=== PATIENT | male | born 1940 | race Caucasian/White ===

== ENCOUNTER 2018-01-20 07:45 | Emergency (ER) | payer MEDICARE ==
--- NOTE | 2018-01-20 08:08 | UC ---
Upper Extremity HPI - HPI Summary HPI Summary: IN-ROOM NOTE: This patient is a 77 year old M presenting to [facility] with a chief complaint of laceration on the left hand since yesterday. Patient denies N/V/D. He scraped his left hand in the [employer] parking against a car mirror. Patient claims that not broken mirror went into his hand. Rich Kim III, MD is his PCP. He sees Yung Nicole MD for his diabetes. Patient is taking aspirin. MD NOTE: Left hand abrasion-type injury less than 24 hours ago. Patient is concerned about infection. Vital signs stable. ROS: all systems negative except for the left hand, which shows scattered abrasions. 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 BP 122/77. Patient is on Altace for HTN. Type 2 diabetic. Visit history: colon noncontributory to present complaint. NURSES NOTE: Cuts on middle and index finger left, cut on car mirror yesterday. - History of Current Complaint Stated Complaint: FINGER INJURY Time Seen by Provider: 01/20/18 07:56 Hx Obtained From: Patient Onset/Duration: Sudden Onset, Lasting Hours - Less than 24 hours ago, Still Present Severity Initially: Mild Severity Currently: Mild Associated Signs And Symptoms: Positive: Other - Denies N/V/D - Allergies/Home Medications Allergies/Adverse Reactions: Allergies Allergy/AdvReac Type Severity Reaction Status Date / Time ENVIRONMENTAL Allergy SNEEZE, Uncoded 01/20/18 08:09 CONGESTION Home Medications: Home Medications Fluticasone HFA 110 mcg(NF) [Flovent HFA 110 mcg(NF)] 1 puff INH BID PRN [History Confirmed 01/20/18] PMH/Surg Hx/FS Hx/Imm Hx Endocrine History: Diabetes - Type 2 Cardiovascular History: Hypertension GI/ History: Kidney Stones Other History Of: Anticoagulant Therapy Negative For: HIV, Hepatitis B, Hepatitis C - Surgical History Surgical History: Yes Surgery Procedure, Year, and Place: 1969'S APP[place]CTOMY, [place] [facility]. 1999 & 2007 LEFT KNEE SURGERY, [facility] [place] [facility] [place]. 2009 PELVIS SYMPHYSIS ORIF AFTER WATER SKIING ACCIDENT, [place]. 02/13/2013 CYSTOSCOPY, LEFT URETERAL STENT PLACEMENT, LASER LITHOTRIPSY, [facility] [place]. BLADDER STONE [id number] - Family History Known Family History: Negative: Hypertension, Renal Disease, Respiratory Disease - Social History Occupation: Employed Part-time Lives: With Family Alcohol Use: Weekly Alcohol Amount: 1-2 PER WEEK Substance Use Type: None Smoking Status (MU): Never Smoked Tobacco - Immunization History Most Recent Influenza Vaccination: JAN 2015 Most Recent Pneumonia Vaccination: 2014 Review of Systems Gastrointestinal: Vomiting - Denies, Diarrhea - Denies, Nausea - Denies Musculoskeletal: Other: - Laceration of left hand All Other Systems Reviewed And Are Negative: Yes - Comments Additional Review of Systems Comments: POSITIVE: LEFT HAND LACERATION NEGATIVE: N/V/D Physical Exam - Summary Physical Exam Summary: Appearance: The patient is well-appearing, is in no pain distress, and is well- nourished. Eyes: Conjunctiva are clear. ENT: The hearing is grossly normal, the pharynx is normal, and the TMs are normal. There is no muffled or hoarse voice. Neck: The neck is supple and there is no lymphadenopathy. Respiratory: The chest is nontender. The lungs are clear, there are normal breath sounds, and there is no respiratory distress. Cardiovascular: REGULAR RATE AND RHYTHM. PULSE 80. 2/6, HOLOSYSTOLIC MURMUR AT THE LEFT STERNAL BORDER. NO CAROTID BRUITS OR RADIATION OF THE MURMUR TO THE CAROTID ARTERIES. Abdomen: The abdomen is soft and nontender. There is no organomegaly. Bowel sounds: present Musculoskeletal: Strength is intact. The patient moves all extremities. EXAMINATION OF LEFT HAND: ABRASIONS NOTED ON DORSUM OF SECOND AND THIRD FINGERS ON LEFT HAND. THE FOURTH FINGER ABRASION IS JUST DISTAL TO THE MCP. EXAMINATION OF THE DORSUM OF THE THIRD FINGER SHOWS A 3 CM SUPERFICIAL LACERATION, WELL APPROXIMATED, WITHOUT BLEEDING OR SIGN OF INFECTION OVER THE DORSUM OF THE PROXIMAL PHALANX. EXAMINATION OF THE INDEX FINGER SHOWS MULTIPLE SMALL ABRASIONS OVER THE PROXIMAL ASPECT OF THE DORSUM, PIP. EXAMINATION OF TENDONS SHOWS THEM TO BE FULLY FUNCTIONAL, ARE THE FLEXION TENDONS. NO INFECTION. Neurological: The patient is alert. Motor and sensory examination grossly intact. Psychological: The patient displays age appropriate behavior Skin: Negative for rashes. Triage Information Reviewed: Yes Vital Signs: Initial Vital Signs Temp 97.6 F 01/20/18 08:00 Pulse 89 01/20/18 08:00 Resp 16 01/20/18 08:00 BP 142/77 09/01/18 08:00 Pulse Ox 99 01/20/18 08:00 Vital Signs Reviewed: Yes Upper Extremity Course/Dx - Course Course Of Treatment: Patient presents with abrasions to the back of the left hand. Examination of the hand is normal with the exception of 3 superficial abrasions of the 2nd, 3rd, and 4th finger. These were cleaned and dressed. The patient will watch for any sign of infection. - Differential Dx/Diagnosis Differential Diagnosis/HQI/PQRI: Other - cellulitis, tendon injury Provider Diagnoses: Superficial abrasions over the dorsum of the left hand Discharge - Sign-Out/Discharge Documenting (check all that apply): Patient Departure - D/C All imaging exams completed and their final reports reviewed: No Studies - Discharge Plan Condition: Stable Disposition: HOME Patient Education Materials: Abrasion (ED) Referrals: Rich Kim MD [Primary Care Provider] - Additional Instructions: Pre-hypertensive BP reading of 142/77. Follow up with your doctor to recheck your blood pressure reading within the next four weeks. WE DISCUSSED: The abrasions to your left hand should heal well over the next 10 days. Watch for any sign of infection including increased pain, redness, swelling, or heat to the area. Warm moist heat to the area 2-3 times a day will increase circulation. Dressed with antibiotic ointment and a Band-Aid over the next 2-3 days. Call us with any questions or concerns. - Billing Disposition and Condition Condition: STABLE Disposition: Home - Attestation Statements Document Initiated by Kana: Yes Documenting Scribe: Gerhard Vargas Provider For Whom Kana is Documenting (Include Credential): Vance Liz Scribe Attestation: Gerhard Mathew, scrlayoed for Vance Liz on 01/20/18 at 0914. Scribe Documentation Reviewed: Yes Provider Attestation: The documentation as recorded by the Gerhard duff accurately reflects the service I personally performed and the decisions made by , Vance Liz
[2018-01-20 08:09] VITALS: BP 142/77
[2018-01-20] MEDS ORDERED: Tetan/Diph/Pertus SYR(Tdap)* 0.5 ML SYR(BOOSTRIX) use SYR IM ONE (08:17)
== END 2018-01-20 09:07 | disposition home or self-care (01) ==
LOC: UCEAST 07:45
DX: S60.512A Abrasion of left hand, initial encounter (principal); W22.09XA Striking against other stationary object, initial encounter; Y92.9 Unspecified place or not applicable; E11.9 Type 2 diabetes mellitus without complications; I10 Essential (primary) hypertension; Z87.442 Personal history of urinary calculi; Z79.01 Long term (current) use of anticoagulants
CPT/HCPCS: 90471; 90715; 99212; G0463

== ENCOUNTER 2018-05-05 07:55 | Emergency (ER) | payer MEDICARE ==
[2018-05-05 08:06] VITALS: BP 119/70
--- NOTE | 2018-05-05 08:25 | UC ---
Lower Extremity/Ankle HPI - HPI Summary HPI Summary: About 4 days ago pt dropped a large object right onto the tip of his R toe. There was no bleeding and he has been able to walk normally since then, but now he has developed redness at the base of his nail that is a little tender. Has T2DM, mild neuropathy. - History of Current Complaint Chief Complaint: UCLowerExtremity Stated Complaint: R TOE INJURY Time Seen by Provider: 05/05/18 08:08 Hx Obtained From: Patient Onset/Duration: Lasting Days Severity Initially: Moderate Severity Currently: Mild Pain Intensity: 1 Aggravating Factor(s): Nothing Alleviating Factor(s): Rest Able to Bear Weight: Yes - Allergies/Home Medications Allergies/Adverse Reactions: Allergies Allergy/AdvReac Type Severity Reaction Status Date / Time ENVIRONMENTAL Allergy SNEEZE, Uncoded 05/05/18 08:06 CONGESTION PMH/Surg Hx/FS Hx/Imm Hx Endocrine History: Diabetes Cardiovascular History: Hypertension GI/ History: Kidney Stones Other History Of: Anticoagulant Therapy Negative For: HIV, Hepatitis B, Hepatitis C - Surgical History Surgical History: Yes Surgery Procedure, Year, and Place: [place]OMY, [place] [facility]. 1999 & 2007 [place] [facility] [place] [facility] [place] PELVIS SYMPHYSIS ORIF AFTER WATER SKIING ACCIDENT, [place]. 02/13/2013 CYSTOSCOPY, LEFT URETERAL STENT PLACEMENT[place] [facility] [place] [id number] - Family History Known Family History: Positive: None Negative: Hypertension, Renal Disease, Respiratory Disease - Social History Occupation: Retired Alcohol Use: Weekly Alcohol Amount: 1-2 PER WEEK Substance Use Type: None Smoking Status (MU): Never Smoked Tobacco - Immunization History Most Recent Influenza Vaccination: JAN 2015 Most Recent Tetanus Shot: unknown, thinks >5 years Most Recent Pneumonia Vaccination: 2014 Review of Systems All Other Systems Reviewed And Are Negative: Yes Constitutional: Positive: Negative Skin: Positive: Other - redness Eyes: Positive: Negative ENT: Positive: Negative Respiratory: Positive: Negative Cardiovascular: Positive: Negative Gastrointestinal: Positive: Negative Genitourinary: Positive: Negative Motor: Positive: Negative Neurovascular: Positive: Negative Musculoskeletal: Positive: Negative Neurological: Positive: Negative Psychological: Positive: Negative Is Patient Immunocompromised?: No Physical Exam Triage Information Reviewed: Yes Appearance: No Pain Distress, Well-Nourished Vital Signs: Initial Vital Signs Temp 96.7 F 05/05/18 08:01 Pulse 77 05/05/18 08:01 Resp 16 05/05/18 08:01 BP 119/70 05/05/18 08:01 Pulse Ox 100 05/05/18 08:01 Vital Signs Reviewed: Yes Eye Exam: Normal Eyes: Positive: Conjunctiva Clear ENT Exam: Normal ENT: Positive: Normal ENT inspection, Hearing grossly normal, Pharynx normal, TMs normal Respiratory Exam: Normal Respiratory: Positive: Chest non-tender, Lungs clear, Normal breath sounds, No respiratory distress, No accessory muscle use Cardiovascular: Positive: Murmur:Sys:Grade _?_/ - III Musculoskeletal: Positive: Strength Intact, ROM Intact Neurological Exam: Normal Neurological: Positive: Alert Psychological Exam: Normal Skin Exam: Other - Erythema on skin at base of R great toenail. Nail firmly attached to nail bed, onychomycosis evident under nail. Diagnostics - Radiology No standard instances Radiology Interpretation Completed By: Radiologist Summary of Radiographic Findings: No acute injury Lower Extremity Course/Dx - Differential Dx/Diagnosis Provider Diagnosis: Crushing injury of toe of right foot, Cellulitis of toe, right Discharge - Sign-Out/Discharge Documenting (check all that apply): Patient Departure All imaging exams completed and their final reports reviewed: Yes - Discharge Plan Condition: Stable Disposition: HOME Prescriptions: DOXYcycline CAP(*) [DOXYcycline 100MG CAP(*)] 100 mg PO BID #10 cap Patient Education Materials: Crush Injury (ED) Referrals: Rich Kim MD [Primary Care Provider] - 5 Days Additional Instructions: Please see your primary care office toward the end of the week for a recheck of your toe. If you have new or markedly worsening pain/redness/swelling, please get seen again right away. - Billing Disposition and Condition Condition: STABLE Disposition: Home
== END 2018-05-05 09:05 | disposition home or self-care (01) ==
LOC: UCEAST 07:55
DX: S97.121A Crushing injury of right lesser toe(s), initial encounter (principal); L03.031 Cellulitis of right toe; E11.9 Type 2 diabetes mellitus without complications; I10 Essential (primary) hypertension; Z91.09 Other allergy status, other than to drugs and biological substances; W20.8XXA Other cause of strike by thrown, projected or falling object, initial encounter; Y92.9 Unspecified place or not applicable
CPT/HCPCS: 99212; G0463

== ENCOUNTER 2018-11-30 15:50 | Inpatient (IN) | payer MEDICARE ==
[2018-11-30] MEDS ORDERED: NS 0.9% 1000 ML** 1,000 ML IV ONE (16:11)
[2018-11-30] MEDS ORDERED: Aspirin 81 mg CHEW TAB* 81 MG TAB.CHEW PO ONE (16:11)
--- NOTE | 2018-11-30 16:24 | ED ---
Shortness of Breath - HPI Summary HPI Summary: This pt is a 78 y/o male [facility] c/o increasing SOB in the past couple of months. Pt reports he saw Dr. Kim on 11/21/18 and had an echocardiogram ([facility]) on 11/23/18. Dr. Kim's office gave the patient a call and told him they had seen narrowing of blood flow in his echo. Pt has been scheduled to see a travel information center supervisor on 01/02/19 and has an upcoming stress test on 12/10/18. Pt called Dr. Kim today because his SOB was getting worse. He notes his SOB is aggravated with ambulation and even more noticeable with walking up a hill or up the stairs. Denies any chest pain/ pressure/heaviness associated with SOB. His SOB is alleviated with rest. Denies cough, fever, abd pain, nausea, vomiting, diaphoresis, headache, dizziness, urinary symptoms, calf pain. Pt currently notes his SOB is minor. PMHx: arrhythmias, kidney stones, DM type 2, HTN. Patient used to exercise a lot in the past but has not been able to since his pelvic symphysis ORIF surgery. Pt reports occasional alcohol use, 3-4 glasses of wine a month and 1 whisky a month. Denies tobacco or drug use. Cardiac Risks: 1. Positive hypertension, on medications. 2. Positive hyperlipidemia. 3. Positive diabetes type 2. 4. Negative smoking hx. 5. Negative family history of cardiac disease. Medications: Altace/Ramipril - 5 mg Simvastatin - 40 mg Adult aspirin - 81 mg Finasteride - 5 mg Lantus - 15 units Metformin - 1000 mg BID Bydurion - once per week 2 mg for DM Fluticasone - PRN Invokana - 300 mg for DM Trimcinolone - topically PRN - History of Current Complaint Chief Complaint: EDShortnessOfBreath Hx Obtained From: Patient Onset/Duration: Lasting Weeks, Still Present Current Severity: Mild Aggravating Factors: Other - ambulation and much more aggravated going up the hill or upstairs Alleviating Factors: Other - rest Associated Signs & Symptoms: Negative - Allergy/Home Medications Allergies/Adverse Reactions: Allergies Allergy/AdvReac Type Severity Reaction Status Date / Time No Known Allergies Allergy Verified 11/30/18 16:00 PMH/Surg Hx/FS Hx/Imm Hx Endocrine/Hematology History: Reports: Hx Anticoagulant Therapy, Hx Diabetes - TYPE 2- ON ORAL MEDICATION AND INSULIN FOR Denies: Hx Thyroid Disease Cardiovascular History: Reports: Hx Coronary Artery Disease - CHOLESTEROL CONTROL WITH MEDICATION, Hx Hypercholesterolemia, Hx Hypertension - ON MEDICATION FOR, Hx Valvular Heart Disease - SOME TYPE OF MINOR PRE TRIGGER SEEN ON EKG, Other Cardiovascular Problems/Disorders - IRREGULAR FAST BEAT- LAST 3-4 MIN.- STATES NONE IN THE LAST YEARS Denies: Hx Congestive Heart Failure, Hx Deep Vein Thrombosis, Hx Myocardial Infarction, Hx Pacemaker/ICD Respiratory History: Reports: Other Respiratory Problems/Disorders - ONCE A YEAR SINUS INFECTION TREATED WITH ANTIBIOTIC - NONE IN A YEAR Denies: Hx Asthma, Hx Chronic Obstructive Pulmonary Disease (COPD), Hx Lung Cancer, Hx Pneumonia, Hx Pulmonary Embolism GI History: Denies: Hx Gall Bladder Disease, Hx Gastrointestinal Bleed, Hx Ulcer, Hx Urosepsis History: Reports: Hx Kidney Stones - HISTORY OF-CURRENTLY HAS SMALL STONES PER PATIENT, Other Problems/Disorders - BLADDER STONES Denies: Hx Renal Disease Musculoskeletal History: Reports: Hx Arthritis - NECK, Other Musculoskeletal History - 2009 WATER SKI EPISODE - MAJOR PELVIS INJURY, COMPLETELY RECOVERED Sensory History: Reports: Hx Contacts or Glasses - GLASSES Denies: Hx Hearing Aid Opthamlomology History: Reports: Hx Contacts or Glasses - GLASSES Neurological History: Denies: Hx Dementia, Hx Migraine, Hx Seizures, Hx Transient Ischemic Attacks (TIA) Psychiatric History: Denies: Hx Anxiety, Hx Depression, Hx Schizophrenia, Hx Bipolar Disorder - Surgical History Surgical History: Yes Surgery Procedure, Year, and Place: S [place]OMY, [place] [facility]. 1999 & 2007 LEFT KNEE SURGERY, [place] [facility] AND [facility] [place]. 2009 PELVIS SYMPHYSIS ORIF AFTER WATER SKIING ACCIDENT, [place]. 02/13/2013 CYSTOSCOPY, LEFT URETERAL STENT PLACEMENT, LASER LITHOTRIPSY, [facility] [place]. BLAD[place] STONE [id number] Hx Anesthesia Reactions: No Infectious Disease History: No Infectious Disease History: Denies: Hx Clostridium Difficile, Hx Hepatitis, Hx Human Immunodeficiency Virus (HIV), Hx of Known/Suspected MRSA, Hx Shingles, Hx Tuberculosis, Traveled Outside the [place] in Last 30 Days - Family History Known Family History: Negative: Cardiac Disease, Hypertension, Renal Disease, Respiratory Disease Family History: Mother at 94 y/o. Father at age 84 with CHF. 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 Negative: Cough Negative: Abdominal Pain, Vomiting, Nausea Positive: no symptoms reported Negative: Other - NEGATIVE: calf pain Neurological: Other - NEGATIVE: dizziness Negative: Headache All Other Systems Reviewed And Are Negative: Yes Physical Exam - Summary Physical Exam Summary: Appearance: Patient appears younger than stated age, moderate pain distress, well-nourished. Skin: Warm, color reflects adequate perfusion, dry Head: Normal Head/Face inspection, atraumatic Eyes: Conjunctiva clear ENT: Normal inspection Neck: Supple, no nodes, no JVD Respiratory: Lungs clear, normal breath sounds, no respiratory distress Cardio: RRR, No murmur, pulses normal, brisk capillary refill Abdomen: Soft, nontender Bowel sounds: Present Musculoskeletal: Strength Intact/ROM intact, no calf tenderness, no edema. Psychological: Normal Neuro: Alert, muscle tone normal, no focal deficit Triage Information Reviewed: Yes Vital Signs On Initial Exam: Initial Vitals Temp Pulse Resp BP Pulse Ox 97.1 F 97 16 116/84 96 11/30/18 15:54 11/30/18 15:54 11/30/18 15:54 11/30/18 15:54 11/30/18 15:54 Vital Signs Reviewed: Yes Diagnostics - Vital Signs Vital Signs Temp Pulse Resp BP Pulse Ox 11/30/18 15:54 97.1 F 97 16 116/84 96 - Laboratory Result Diagrams: 12/01/18 05:42 12/03/18 08:10 Lab Statement: Any lab studies that have been ordered have been reviewed, and results considered in the medical decision making process. - Radiology Chest XR Radiology Interpretation Completed By: Radiologist Summary of Radiographic Findings: IMPRESSION: Cardiomegaly with interstitial edema consistent with vascular congestion. Dr. Antony has reviewed this report. Re-Evaluation - Re-Evaluation First Eval Re-Evaluation Time: 17:21 Comment: Reviewed lab results with patient and discussed admission plan. Course/Dx - Course Assessment/Plan: Pt is a 78 y/o male presenting to [facility] c/o increasing SOB in the past couple of months. He had echocardiogram ([facility]) on 10/07. Pt has been scheduled to see a travel information center supervisor on 01/02/19 and has an upcoming stress test on 12/10/18. Cardiac Risks: 1. Positive hypertension, on medications. 2. Positive hyperlipidemia. 3. Positive diabetes type 2. 4. Negative smoking hx. 5. Negative family history of cardiac disease. Pts medications reviewed this visit. Nurses notes reviewed. Aware of troponin of 0.26 at 17:07. Lab results remarkable for D-dimer of 295, creatinine of 1.25, glucose of 148, Troponin of 0.26, CRP of 2.78, BNP of 768. Urinalysis with 3+ glucose. Chest XR shows Cardiomegaly with interstitial edema consistent with vascular congestion. Discussed the case with Dr. Olguin, travel information center supervisor, who will consult. Also discussed with hospitalist Rafia Bowden, NOEMI, who will admit the pt. - Physician Notifications Discussed Care of Patient With: Isaiah Olguin Time Discussed With Above Provider: 17:08 Instructed by Provider To: Other - Discussed with Dr. Olguin, travel information center supervisor, who will consult on the pt. - Critical Care Time Critical Care Time: 30-74 min Discharge - Sign-Out/Discharge Documenting (check all that apply): Patient Departure - Admit to [facility] All imaging exams completed and their final reports reviewed: Yes Patient Received Moderate/Deep Sedation with Procedure: No - Discharge Plan Condition: Guarded Disposition: ADMITTED TO [facility] - Billing Disposition and Condition Condition: GUARDED Disposition: Admitted to [facility] - Attestation Statements Document Initiated by Scribe: Yes Documenting Scribe: Charisse Crenshaw Provider For Whom Primitivoibe is Documenting (Include Credential): Jazmyn Antony MD Scribe Attestation: Charisse Mathew, scribed for Jazmyn Antony MD on 12/04/18 at 0932. Status of Scribe Document: Viewed
[2018-11-30 16:35] LABS: ABS Basophils 0.1 10^3/ul (0-0.2); ABS Eosinophils 0.1 10^3/ul (0-0.6); ABS Lymphocytes 1.7 10^3/ul (1.0-4.8); ABS Monocytes 0.7 10^3/ul (0-0.8); ABS Neutrophils 5.3 10^3/ul (1.5-7.7); Eosinophil % 1.3 %; Hematocrit 45 % (42-52); Hemoglobin 15.5 g/dL (14.0-18.0); Lymphocyte % 21.6 %; Mean Corpuscular HGB Conc 34 g/dL (31-36); Mean Corpuscular Hemoglobin 32 pg (27-31); Mean Corpuscular Volume 93 fL (80-94); Mean Platelet Volume 7.4 fL (7.4-10.4); Platelet Count 195 10^3/uL (150-450); Red Cell Distribution Width 13 % (10-15); White Blood Count 7.9 10^3/uL (3.5-10.8)
[2018-11-30 16:54] LABS: ALT 17 U/L (7-52); AST 15 U/L (13-39); Albumin 4.3 g/dL (3.2-5.2); Albumin/Globulin Ratio 1.5 (1-3); Alkaline Phosphatase 72 U/L (34-104); Anion Gap 6 mmol/L (2-11); BUN/Creatinine Ratio 16.8 (8-20); Blood Urea Nitrogen 21 mg/dL (6-24); CO2 Carbon Dioxide 27 mmol/L (22-32); CRP High Sensitivity 2.78 mg/L (<2.00); Calcium 9.6 mg/dL (8.6-10.3); Chloride 106 mmol/L (101-111); Creatine Kinase 86 U/L (10-223); EGFR African American 67.4 (>60); EGFR Non-African American 55.7 (>60); Globulin 2.9 g/dL (2-4); Glucose 148 mg/dL (70-100); Potassium 4.5 mmol/L (3.5-5.0); Sodium 139 mmol/L (135-145); Total Protein 7.2 g/dL (6.4-8.9)
[2018-11-30 16:57] LABS: CKMB ng/mL 5.6 ng/mL (0.6-6.3)
[2018-11-30 17:04] LABS: Troponin I 0.26 ng/mL (<0.04)
--- OUTSIDE RECORDS SUMMARY | 2018-11-30 17:14 | XMS REPORT | Continuity of Care Document ---
:1940 External Reference #:[id number] Author Name Ronit Cruz Care Team Providers Name Role Phone Rich Kim III, MD Primary Care Physician Unavailable Payers Date Identification Numbers Payment Provider Subscriber Effective: 2004 Policy Number: [id number] Medicare Stacy Gilman PayID: [id number] [address] [place] [address] Policy Number: [id number] [facility] Stacy Gilman PayID: [id number] [address] [place] [address] Advance Directives Type Date Description Status Comment Other Directive 07/15/1999 Living Will Current and Verified Other Directive 07/15/1999 Health Care Proxy Current and Verified Other Directive 07/15/1999 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 Onset: obstruction Essential hypertension Rich Kim M.D. Onset: 07/01/2015 Disorder of prostate Rich Kim M.D. Onset: 01/05/2011 Benign essential hypertension Rich Kim M.D. Onset: 01/05/2011 Pure hypercholesterolemia Rich Kim M.D. Onset: 01/05/2011 Type 2 diabetes mellitus Rich Kim M.D. 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 [employer] Tobacco Use Start: Unknown Never Smoked Cigarettes ETOH Use Occasionally consumes alcohol Tobacco Use Start: Unknown Patient has never smoked Smoking Status Reviewed: 11/21/18 Patient has never smoked Exercise Exercises regularly Type/Frequency Allergies, Adverse Reactions, Alerts Description No Known Drug Allergies Medications Active Medications SIG Qnty Indications Ordering Date Provider Nitroglycerin 1 sl q5mins x3 as 25tabs R07.9 Rich EMily 11/21/2018 0.4mg needed for chest Anastasia Kim Tablets Sub pain Accu-Chek Softclix use two times a 100units E11.9 Rich EMily 06/14/2012 Lancets day and as needed [place] [facility] [place] one tablet by 90tabs Rich EMily 04/27/2012 40mg mouth once daily Anastasia Kim Tablets Lancets Softclix Use bid And prn 100units Rich Fu 10/09/2008 dX 250.00 Anastasia [place] [facility] [place]us 15 units qd 1Bottle Yung Nicole MD 08/13/2007 100Unit/ML Solution Ramipril 1 PO qd Yung Nicole MD 08/13/2007 5mg Capsules Metformin HCL 2 PO bid 60tabs Yung Nicole MD 08/13/2007 1000mg Tablets Triamcinolone Cream topically every 15Grams Rich EMily 08/13/2007 day as needed Anastasia Kim 0.1% Cream Fluticasone spray one spray in 1units Rich Fu 08/13/2007 Propionate each nostril every Anastasia Kim 50mcg/Act morning as needed Suspension needs appointment Aspirin Ec 1 po qd 90tabs Unknown 81mg Tablets DR Finasteride 1 by mouth every Unknown 5mg day Tablets Bydureon inject 2 mg sc Yung Nicole MD 2mg Pen weekly Invokana 1 by mouth every Unknown 300mg day before Tablets breakfast History Medications Simvastatin take 1 tablet by 30tabs Sheyla Dominique, 04/27/2012 - 10mg mouth at bedtime N.P. 04/27/2012 Tablets Acetaminophen/Codeine 1-2 po tid prn 30tabs Boyd Medeiros, 2011 - #3 [facility] 07/16/2012 300-30mg Tablets Glimepride No longer using. Yung Nicole MD 07/22/2009 - 4mg 1poqd 07/01/2015 Prandin 1 Tab PO With 270tabs Yung Nicole MD 12/17/2007 - 2mg Tablets Each Meal 07/22/2009 Labetalol HCL 1 PO bid 60tabs Rich Kim, 09/10/2007 - 100mg M.D. 09/10/2007 Tablets Claritin-D 24 Hour 1 PO qd 30tabs Rich Kim, 08/13/2007 - M.D. 08/13/2007 10-240mg Tablets ER 24HR Asa 1 PO qd Rich Kim, 08/13/2007 - 81mg M.D. 03/18/2013 Fluticasone 1 spray each 1units Rich Kim, 08/13/2007 - Propionate nostril in am M.D. 03/01/2012 50mcg/Act Suspension Azithromycin 2 qd For 1 Day, 6tabs Other Physician 08/13/2007 - 250mg Then 1 qd Practices 09/10/2015 Tablets Keflex 1 po bid 20caps Rich Kim, 08/13/2007 - 500mg Capsules M.D. 12/17/2007 Vytorin Take One Tablet 90tabs Boyd Medeiros, 08/13/2007 - 10-40mg Tablets By Mouth AT M.D[facility] 04/27/2012 Bedtime Avodart 1 po qd 3caps Unknown - 0.5mg Capsules 07/01/2015 Tamsulosin HCL 1 po qd Unknown - 0.4mg 04/09/2014 Capsules Byetta inject 1 dose 30units Unknown - 10mcg/0.04ML under the skin 07/01/2015 Solution twice daily as directed Influenza Virus Unknown Vaccine Injection Medications Administered in Office Medication SIG Qnty Indications Ordering Provider Date Influenza Virus Vaccine Unknown 03/19/2014 Injection Immunizations CPT Code Status Date Vaccine Lot # [id number] Given 01/30/2018 Fluzone High Dose 57785 Given 02/22/2017 Influenza Virus Vaccine, Quadrivalent, Split, Preservative Free 47351 Given 02/21/2016 Fluzone High Dose 73883 Given 04/09/2014 Pneumococcal Conjugate Vaccine 13 Valent For [id number] Intramuscular Use 49207 Given 04/04/2013 Tdap - Tetanus/Diptheria/Acellular Pertussis [id number] Given 03/28/2013 Fluzone Vaccine [id number] Given 03/01/2012 Fluzone Vaccine [id number] 97082 Given 03/01/2012 Tdap - Tetanus/Diptheria/Acellular Pertussis [id number] 01126 Given 02/03/2011 Influenza Virus 3Yrs & Over 22087 Given 09/09/2010 Zoster (Zostavax) [id number] 47284 Given 02/22/2008 Influenza Virus 3Yrs & Over 95224 Given 03/14/2007 Influenza Virus 3Yrs & Over 64527 Given 03/14/2007 Influenza Virus 3Yrs & Over 26026 Given 03/14/2007 Influenza Virus 3Yrs & Over [id number] 18162 Given 11/24/2004 Pneumovax (History By Patient) [id number] 95214 Given 03/26/2002 Td (History By Patient) Vital Signs Date Vital Result Comment 11/21/2018 9:05am Height 70 inches 5'10" Weight 191.00 lb Heart Rate 87 /min BP Systolic 126 mmHg BP Diastolic 79 mmHg O2 % BldC Oximetry 96 % BMI (Body Mass Index) 27.4 kg/m2 06/06/2018 9:32am Height 70 inches 5'10" Weight 193.00 lb Heart Rate 71 /min BP Systolic Sitting 134 mmHg BP Diastolic Sitting 80 mmHg O2 % BldC Oximetry 96 % BMI (Body Mass Index) 27.7 kg/m2 02/21/2017 2:57pm Height 69 inches 5'9" Weight 199.00 lb Heart Rate 80 /min BP Systolic Sitting 138 mmHg BP Diastolic Sitting 78 mmHg Body Temperature 97.0 F O2 % BldC Oximetry 97 % BMI (Body Mass Index) 29.4 kg/m2 07/01/2015 1:14pm Height 70 inches 5'10" Weight 203.00 lb Heart Rate 86 /min BP Systolic Sitting 132 mmHg BP Diastolic Sitting 84 mmHg Body Temperature 97.6 F O2 % BldC Oximetry 97 % BMI (Body Mass Index) 29.1 kg/m2 04/09/2014 8:52am Weight 201.00 lb Heart Rate 72 /min BP Systolic Sitting 114 mmHg BP Diastolic Sitting 64 mmHg Body Temperature 97.2 F 03/18/2013 1:10pm Height 70.5 inches 5'10.50" Weight 193.75 lb Heart Rate 72 /min irregular BP Systolic Sitting 110 mmHg BP Diastolic Sitting 60 mmHg BMI (Body Mass Index) 27.4 kg/m2 07/16/2012 10:54am Height 70.5 inches 5'10.50" Weight 209.25 lb Heart Rate 86 /min BP Systolic Sitting 128 mmHg irregular BP Diastolic Sitting 64 mmHg irregular BMI (Body Mass Index) 29.6 kg/m2 03/01/2012 4:00pm Height 70.5 inches 5'10.50" Weight 216.56 lb Heart Rate 92 /min BP Systolic Sitting 154 mmHg BP Diastolic Sitting 80 mmHg BMI (Body Mass Index) 30.6 kg/m2 01/05/2011 9:15am Height 69.5 inches 5'9.50" Weight 211.00 lb Heart Rate 76 /min BP Systolic Sitting 126 mmHg BP Diastolic Sitting 82 mmHg BMI (Body Mass Index) 30.7 kg/m2 08/12/2010 10:48am Weight 210.00 lb Heart Rate 76 /min BP Systolic Sitting 142 mmHg BP Diastolic Sitting 80 mmHg 08/10/2009 11:55am Weight 214.00 lb Heart Rate 78 /min BP Systolic Sitting 130 mmHg BP Diastolic Sitting 84 mmHg 04/08/2008 2:14pm Height 70.5 inches 5'10.50" Weight 214.00 lb Heart Rate 80 /min BP Systolic Sitting 148 mmHg BP Diastolic Sitting 82 mmHg BMI (Body Mass Index) 30.3 kg/m2 02/22/2008 12:06pm Height 70.5 inches 5'10.50" Weight 214.00 lb Heart Rate 52 /min BP Systolic Sitting 134 mmHg BP Diastolic Sitting 74 mmHg BMI (Body Mass Index) 30.3 kg/m2 12/17/2007 1:42pm Height 70.5 inches 5'10.50" Weight 216.00 lb Heart Rate 68 /min BP Systolic Sitting 116 mmHg BP Diastolic Sitting 66 mmHg BMI (Body Mass Index) 30.6 kg/m2 08/13/2007 9:15am Height 70.5 inches 5'10.50" Weight 212.00 lb Heart Rate 84 /min BP Systolic Sitting 124 mmHg BP Diastolic Sitting 70 mmHg BMI (Body Mass Index) 30.0 kg/m2 Results Test Date Facility Test Result H/L Range Note Order 11/21/2018 [facility] In-House EKG <pending> Urine Microalbumin 05/31/2018 [facility] Ur Microalbumin < 15.[address] (mg/L) [place] [address] [phone] Urine Creatinine 86.03 mg/dL Urine Microalbumin/Creatinine TNP <31 1 Laboratory test 05/31/2018 [facility] PSA Diagnostic 0.350 ng/ mL 0-4.[address] [place] [address] [phone] Comp Metabolic 05/31/2018 [facility] Sodium 140 mmol/L N 135- [address] [place] [address] [phone] Potassium 4.0 mmol/L N 3.5-5.0 Chloride 103 mmol/L N 101-111 Co2 Carbon Dioxide 29 mmol/L N 22-32 Anion Gap 8 mmol/L N 2-11 Glucose 101 mg/dL High 70-100 Blood Urea Nitrogen 20 mg/dL N 6-24 Creatinine 0.96 mg/dL N 0.67-1.17 BUN/Creatinine Ratio 20.8 High 8-20 Calcium 9.6 mg/dL N 8.6-10.3 Total Protein 6.5 g/dL N 6.4-8.9 Albumin 3.9 g/dL N 3.2-5.2 Globulin 2.6 g/dL N 2-4 Albumin/Globulin Ratio 1.5 N 1-3 Total Bilirubin 0.70 mg/dL N 0.2-1.0 Alkaline Phosphatase 70 U/L N 34-104 Alt 16 U/L N 7-52 Ast 15 U/L N 13-39 Egfr Non- 75.8 >60 Egfr 91.7 >60 3 Lipid Profile 05/31/2018 [facility] Triglycerides 82 mg/dL 4 (Trig/Chol/HDL) [address] [place] [address] [phone] Cholesterol 149 mg/dL 5 HDL Cholesterol 52.9 mg/dL 6 LDL Cholesterol 80 mg/dL 7 Liver Function 05/31/2018 [facility] Direct 0.10 mg/dL N 0.03- 0.[address] [place] [address] [phone] Indirect Bilirubin 0.6 mg/dL N 0.3-1.0 Laboratory test 05/31/2018 [facility] Vitamin B12 187 pg/mL N 180-[address] [place] [address] [phone] Laboratory test 07/12/2017 [facility] PSA Diagnostic 0.533 0- 4.0 [address] ng/[place] [address] [phone] Lipid Profile 02/13/2017 [facility] Triglycerides 75 mg/dL N 10 (Trig/Chol/HDL) [address] [place] [address] [phone] Cholesterol 133 mg/dL N 11 HDL Cholesterol 45.6 mg/dL N 12 LDL Cholesterol 72 mg/dL N 13 Comp Metabolic Panel 02/13/2017 [facility] Sodium 139 mmol/L N 133-[address] [place] [address] [phone] Potassium 4.0 mmol/L N 3.5-5.0 Chloride 104 mmol/L N 101-111 Co2 Carbon Dioxide 30 mmol/L N 22-32 Anion Gap 5 mmol/L N 2-11 Glucose 108 mg/dL High 70-100 Blood Urea Nitrogen 21 mg/dL N 6-24 Creatinine 0.91 mg/dL N 0.67-1.17 BUN/Creatinine Ratio 23.1 High 8-20 Calcium 9.0 mg/dL N 8.6-10.3 Total Protein 6.3 g/dL Low 6.4-8.9 Albumin 4.0 g/dL N 3.2-5.2 Globulin 2.3 g/dL N 2-4 Albumin/Globulin Ratio 1.7 N 1-3 Total Bilirubin 0.60 mg/dL N 0.2-1.0 Alkaline Phosphatase 66 U/L N 34-104 Alt 15 U/L N 7-52 Ast 15 U/L N 13-39 Egfr Non- 80.8 N >60 Egfr 103.9 N >60 14 Urine Microalbumin 11/04/2016 [facility] Urine Creatinine 73.59 mg/dL N Random [address] [place] [address] [phone] Ur Microalbumin (mg/L) < 15.0 mg/L N Urine Microalbumin/Creatinine TNP ug/mg N <31 15 Comp Metabolic Panel 11/04/2016 [facility] Sodium 136 mmol/L N 133-[address] [place] [address] [phone] Potassium 4.1 mmol/L N 3.5-5.0 Chloride 103 mmol/L N 101-111 Co2 Carbon Dioxide 26 mmol/L N 22-32 Anion Gap 7 mmol/L N 2-11 Glucose 122 mg/dL High 70-100 Blood Urea Nitrogen 16 mg/dL N 6-24 Creatinine 0.87 mg/dL N 0.67-1.17 BUN/Creatinine Ratio 18.4 N 8-20 Calcium 9.5 mg/dL N 8.6-10.3 Total Protein 6.7 g/dL N 6.4-8.9 Albumin 4.2 g/dL N 3.2-5.2 Globulin 2.5 g/dL N 2-4 Albumin/Globulin Ratio 1.7 N 1-3 Total Bilirubin 0.70 mg/dL N 0.2-1.0 Alkaline Phosphatase 67 U/L N 34-104 Alt 16 U/L N 7-52 Ast 16 U/L N 13-39 Egfr Non- 85.1 N >60 Egfr 109.4 N >60 16 Lipid Profile 11/04/2016 [facility] Triglycerides 142 mg/dL N 17 (Trig/Chol/HDL) [address] [place] [address] [phone] Cholesterol 159 mg/dL N 18 HDL Cholesterol 50.2 mg/dL N 19 LDL Cholesterol 80 mg/dL N 20 Liver Function 11/04/2016 [facility] Direct 0.10 mg/dL N 0.03- 0.[address] [place] [address] [phone] Indirect Bilirubin 0.6 mg/dL N 0.3-1.0 Laboratory test 02/29/2016 [facility] PSA Screening 0.405 N 0- 4.0 [address] ng/[place] [address] [phone] Laboratory test 11/11/2015 [facility] Point of Care 124 mg/dL High 74-106 [address] [place] [address] [phone] CBC Auto Diff 11/06/2015 [facility] White Blood 8.2 N 3.5- 10.[address] Count 10^3/[place] [address] [phone] Red Blood Count 5.10 10^6/uL N 4.0-5.4 Hemoglobin 15.8 g/dL N 14.0-18.0 Hematocrit 46 % N 42-52 Mean Corpuscular Volume 91 fL N 80-94 Mean Corpuscular Hemoglobin 31 pg N 27-31 Mean Corpuscular HGB Conc 34 g/dL N 31-36 Red Cell Distribution Width 13 % N 10.5-15 Platelet Count 217 10^3/uL N 150-450 Mean Platelet Volume 8 um3 N 7.4-10.4 Abs Neutrophils 5.1 10^3/uL N 1.5-7.7 Abs Lymphocytes 2.1 10^3/uL N 1.0-4.8 Abs Monocytes 0.8 10^3/uL N 0-0.8 Abs Eosinophils 0.2 10^3/uL N 0-0.6 Abs Basophils 0.1 10^3/uL N 0-0.2 Abs Nucleated RBC 0.02 10^3/uL N Granulocyte % 61.8 % N 38-83 Lymphocyte % 25.3 % N 25-47 Monocyte % 9.6 % High 1-9 Eosinophil % 2.5 % N 0-6 Basophil % 0.8 % N 0-2 Nucleated Red Blood Cells % 0.2 N Comp Metabolic Panel 11/06/2015 [facility] Sodium 138 mmol/L N 133-[address] [place] [address] [phone] Potassium 4.3 mmol/L N 3.5-5.0 Chloride 102 mmol/L N 101-111 Co2 Carbon Dioxide 29 mmol/L N 22-32 Anion Gap 7 mmol/L N 2-11 Glucose 214 mg/dL High 70-100 Blood Urea Nitrogen 17 mg/dL N 6-24 Creatinine 1.01 mg/dL N 0.67-1.17 BUN/Creatinine Ratio 16.8 N 8-20 Calcium 9.8 mg/dL N 8.6-10.3 Total Protein 6.8 g/dL N 6.4-8.9 Albumin 4.3 g/dL N 3.2-5.2 Globulin 2.5 g/dL N 2-4 Albumin/Globulin Ratio 1.7 N 1-3 Total Bilirubin 0.70 mg/dL N 0.2-1.0 Alkaline Phosphatase 73 U/L N 34-104 Alt 26 U/L N 7-52 Ast 18 U/L N 13-39 Egfr Non- 71.8 N >60 Egfr 92.4 N >60 23 Lipid Profile 11/06/2015 [facility] Triglycerides 194 mg/dL N 24 (Trig/Chol/HDL) [address] [place] [address] [phone] Cholesterol 164 mg/dL N 25 HDL Cholesterol 46.3 mg/dL N 26 LDL Cholesterol 79 mg/dL N 27 Liver Function 11/06/2015 [facility] Direct 0.10 mg/dL N 0.03- 0.[address] [place] [address] [phone] Indirect Bilirubin 0.6 mg/dL N 0.3-1.0 Urine Microalbumin 11/06/2015 [facility] Ur Microalbumin 9.0 mg/ L N Random [address] (mg/L) [place] [address] [phone] Urine Creatinine 145.72 mg/dL N Urine Microalbumin/Creatinine 6.1 ug/mg N <31 Urine Microalbumin 12/08/2014 [facility] Ur Microalbumin 10.0 mg /L N Random [address] (mg/L) [place] [address] [phone] Urine Creatinine 162.42 mg/dL N Urine Microalbumin/Creatinine 6.1 ug/mg N <31 Comp Metabolic Panel 12/08/2014 [facility] Sodium 138 mmol/L N 133-[address] [place] [address] [phone] Potassium 3.9 mmol/L N 3.5-5.0 Chloride 103 mmol/L N 101-111 Co2 Carbon Dioxide 29 mmol/L N 22-32 Anion Gap 6 mmol/L N 2-11 Glucose 113 mg/dL High 70-100 Blood Urea Nitrogen 15 mg/dL N 6-24 Creatinine 0.97 mg/dL N 0.67-1.17 BUN/Creatinine Ratio 15.5 N 8-20 Calcium 9.1 mg/dL N 8.6-10.3 Total Protein 6.6 g/dL N 6.4-8.9 Albumin 4.4 g/dL N 3.2-5.2 Globulin 2.2 g/dL N 2-4 Albumin/Globulin Ratio 2.0 N 1-3 Total Bilirubin 0.80 mg/dL N 0.2-1.0 Alkaline Phosphatase 72 U/L N 34-104 Alt 16 U/L N 7-52 Ast 17 U/L N 13-39 Egfr Non- 75.5 N >60 Egfr 97.0 N >60 28 Lipid Profile 12/08/2014 [facility] Triglycerides 120 mg/dL N 29 (Trig/Chol/HDL) [address] [place] [address] [phone] Cholesterol 163 mg/dL N 30 HDL Cholesterol 47.3 mg/dL N 31 LDL Cholesterol 92 mg/dL N 32 Liver Function 12/08/2014 [facility] Direct 0.10 mg/dL N 0.03- 0.18 Panel 101 [facility] [place] [place] [address] [phone] Indirect Bilirubin 0.7 mg/dL N 0.3-1.0 Laboratory test 12/08/2014 [facility] Vitamin B12 273 pg/mL N 180-914 33 finding [address] [place] [address] [phone] Laboratory test 12/08/2014 [facility] PSA Screening 0.520 ng/mL N 0-4.000 34 finding [address] [place] [address] [phone] Comp Metabolic 09/03/2013 [facility] Sodium 140 mmol/L N 133- 145 35 Panel [address] [place] [address] [phone] Potassium 4.2 mmol/L N 3.7-5.6 Chloride 105 mmol/L N 101-111 Co2 Carbon Dioxide 30 mmol/L N 22-32 Anion Gap 5 mmol/L N 2-11 Glucose 96 mg/dL N 70-100 Blood Urea Nitrogen 18 mg/dL N 6-24 Creatinine 0.96 mg/dL N 0.67-1.17 BUN/Creatinine Ratio 18.8 N 8-20 Calcium 9.3 mg/dL N 8.6-10.3 Total Protein 6.6 g/dL N 6.4-8.9 Albumin 4.4 g/dL N 3.2-5.2 Globulin 2.2 g/dL N 2-4 Albumin/Globulin Ratio 2.0 N 1-3 Total Bilirubin 0.80 mg/dL N 0.2-1.0 Alkaline Phosphatase 66 U/L N 34-104 Alt 15 U/L N 7-52 Ast 15 U/L N 13-39 Egfr Non- 76.8 N >60 Egfr 98.7 N >60 36 Lipid Profile 09/03/2013 [facility] Triglycerides 110 mg/dL N 37 (Trig/Chol/HDL) [address] [place] [address] [phone] Cholesterol 161 mg/dL N 38 HDL Cholesterol 50.8 mg/dL N 39 LDL Cholesterol 88 mg/dL N 40 Liver Function 09/03/2013 [facility] Direct 0.10 mg/dL N 0.03- 0.[address] [place] [address] [phone] Indirect Bilirubin 0.7 mg/dL N 0.3-1.0 Urine Microalbumin 09/03/2013 [facility] Ur Microalbumin 10.0 mg /dL N <[address] (mg/L) [place] [address] [phone] Urine Creatinine 178.92 mg/dL N Urine Microalbumin/Creatinine 5.5 N Less Than 31 Laboratory test 09/03/2013 [facility] PSA Screening 0.442 ng/mL N 0-4.0 [address] [place] [address] [phone] Laboratory test 02/13/2013 [facility] Stone Analysis . [address] [place] [address] [phone] Laboratory test 02/13/2013 [facility] Stone Analysis See comment [address] [place] [address] [phone] Laboratory test 02/13/2013 [facility] Stone Analysis See comment [address] [place] [address] [phone] CBC Auto Diff 02/05/2013 [facility] White Blood 7.6 10^3/uL 4.8-10.[address] [place] [address] [phone] Red Blood Count 4.52 10^6/uL 4.0-5.4 Hemoglobin 14.4 g/dL 14.0-18.0 Hematocrit 42 % 42-52 Mean Corpuscular Volume 93 fL 80-94 Mean Corpuscular Hemoglobin 32 pg High 27-31 Mean Corpuscular HGB Conc 34 g/dL 31-36 Red Cell Distribution Width 13 % 10.5-15 Platelet Count 272 10^3/uL 150-450 Mean Platelet Volume 7 um3 Low 7.4-10.4 Abs Neutrophils 5.0 10^3/uL 1.5-7.7 Abs Lymphocytes 1.6 10^3/uL 1.0-4.8 Abs Monocytes 0.8 10^3/uL 0-0.8 Abs Eosinophils 0.1 10^3/uL 0-0.6 Abs Basophils 0.1 10^3/uL 0-0.2 Abs Nucleated RBC 0 10^3/uL Granulocyte % 65.9 % 38-83 Lymphocyte % 21.1 % Low 25-47 Monocyte % 11.1 % High 1-9 Eosinophil % 1.2 % 0-6 Basophil % 0.7 % 0-2 Nucleated Red Blood Cells % 0 Comp Metabolic Panel 02/05/2013 [facility] Sodium 140 mmol/L 133-[address] [place] [address] [phone] Potassium 4.4 mmol/L 3.5-5.0 Chloride 101 mmol/L 101-111 Co2 Carbon Dioxide 31.0 mmol/L 22-32 Anion Gap 8.0 mmol/L 2-11 Glucose 222 mg/dL High 70-100 Blood Urea Nitrogen 20 mg/dL 6-24 Creatinine 0.90 mg/dL 0.50-1.40 BUN/Creatinine Ratio 22.2 High 8-20 Calcium 9.9 mg/dL 8.1-9.9 Total Protein 7.0 g/dL 6.2-8.1 Albumin 3.9 g/dL 3.2-5.2 Globulin 3.1 g/dL 2-4 Albumin/Globulin Ratio 1.3 1-3 Total Bilirubin 0.4 mg/dL 0.4-1.5 Alkaline Phosphatase 83 U/L 30-110 Alt 15 U/L 14-54 Ast 14 U/L 12-42 Egfr Non- 82.7 >60 Egfr 106.4 >60 46 Urinalysis 11/24/2012 [facility] Urine Color Yellow [address] [place] [address] [phone] Urine Appearance Clear Urine Specific [place] 1.018 1.010-1.030 Urine Esterase 2+ Abnormal Negative Urine Nitrate Negative Negative Urine Urobilinogen Negative E.U./dL Negative Urine Protein Trace mg/dL Negative Urine pH 6.5 5-9 Urine Blood 2+ Abnormal Negative Urine Ketones Negative mg/dL Negative Urine Bilirubin Negative Negative Urine Glucose Trace mg/dL Abnormal Negative Urine Microscopic 11/24/2012 [facility] Urine WBC 3+ (>10 None Seen [address] /hpf) [place] [address] [phone] Urine RBC 3+ (>10 /hpf) None Seen Urine Mucus Present /lpf Absent Urine Epithelial Cells 1+ Urothelial /hpf None Seen Bacteria Urine 2+ None Seen Urine Culture And 11/24/2012 [facility] Urine Culture (SEE NOTE ) [address] [place] [address] [phone] Urine Microalbumin 10/11/2012 [facility] Ur Microalbumin 10.0 mg /L [address] (mg/L) [place] [address] [phone] Urine Creatinine 157.3 mg/dL Urine Microalbumin/Creatinine 6.4 ug/mg Less Than 31 Comp Metabolic Panel 10/11/2012 [facility] Sodium 139 mmol/L 133-[address] [place] [address] [phone] Potassium 3.6 mmol/L 3.5-5.0 Chloride 105 mmol/L 101-111 Co2 Carbon Dioxide 28.0 mmol/L 22-32 Anion Gap 6.0 mmol/L 2-11 Glucose 99 mg/dL 70-100 Blood Urea Nitrogen 16 mg/dL 6-24 Creatinine 0.90 mg/dL 0.50-1.40 BUN/Creatinine Ratio 17.8 8-20 Calcium 9.2 mg/dL 8.1-9.9 Total Protein 6.5 g/dL 6.2-8.1 Albumin 4.0 g/dL 3.2-5.2 Globulin 2.5 g/dL 2-4 Albumin/Globulin Ratio 1.6 1-3 Total Bilirubin 1.2 mg/dL 0.4-1.5 Alkaline Phosphatase 59 U/L 30-110 Alt 15 U/L 14-54 Ast 15 U/L 12-42 Egfr Non- 82.7 >60 Egfr 106.4 >60 49 Lipid Profile 10/11/2012 [facility] Triglycerides 71 mg/dL 40 -200 (Trig/Chol/HDL) [address] [place] [address] [phone] Cholesterol 140 mg/dL Less than 200 HDL Cholesterol 48 mg/dL 40-60 50 Cholesterol/HDL Ratio 2.9 Average 1-4.44 LDL Cholesterol 77.8 mg/dL Less Than 100 51 Liver Function 10/11/2012 [facility] Direct Bilirubin 0.2 mg/dL 0.1-0.5 Panel [address] [place] [address] [phone] Indirect Bilirubin 1.0 mg/dL 0.3-1.0 Laboratory test 10/11/2012 [facility] Vitamin B12 263 pg/mL 180-914 52 finding [address] [place] [address] [phone] Laboratory test 09/10/2012 [facility] Blood Urea 17 mg/dL 6- 24 finding 101 [facility] [place] [address] [phone] Creatinine 09/10/2012 [facility] Creatinine 0.90 mg/dL 0.50- 1.40 [address] [place] [address] [phone] Egfr Non- 82.9 >60 Egfr 106.7 >60 53 Laboratory test 09/10/2012 [facility] PSA Diagnostic 0.56 ng/mL 0-4.0 54 finding [address] [place] [address] [phone] Lipid Profile 06/13/2012 [facility] Triglycerides 102 mg/dL 40-200 (Trig/Chol/HDL) [address] [place] [address] [phone] Cholesterol 186 mg/dL Less than 200 HDL Cholesterol 50 mg/dL 40-60 55 Cholesterol/HDL Ratio 3.7 Average 1-4.44 LDL Cholesterol 115.6 mg/dL High Less Than 100 56 Comp Metabolic Panel 06/13/2012 [facility] Sodium 137 mmol/L 133-[address] [place] [address] [phone] Potassium 4.2 mmol/L 3.5-5.0 Chloride 102 mmol/L 101-111 Co2 Carbon Dioxide 28.0 mmol/L 22-32 Anion Gap 7.0 mmol/L 2-11 Glucose 137 mg/dL High 70-100 Blood Urea Nitrogen 22 mg/dL 6-24 Creatinine 1.00 mg/dL 0.50-1.40 BUN/Creatinine Ratio 22.0 High 8-20 Calcium 9.3 mg/dL 8.1-9.9 Total Protein 6.0 g/dL Low 6.2-8.1 Albumin 4.0 g/dL 3.2-5.2 Globulin 2.0 g/dL 2-4 Albumin/Globulin Ratio 2.0 1-3 Total Bilirubin 0.8 mg/dL 0.4-1.5 Alkaline Phosphatase 66 U/L 30-110 Alt 17 U/L 14-54 Ast 15 U/L 12-42 Egfr Non- 73.5 >60 Egfr 94.5 >60 57 Laboratory test 06/13/2012 [facility] Hemoglobin A1c 8.6 % High Less [address] than 6.0 [place] [address] [phone] Urine 10/19/2011 [facility] Microalbumin 21.[address] (MG/L) mg/[place] [address] [phone] Urine Creatinine 177.5 mg/dL Paulo Alb/Creatinine Ratio 11.8 UG/MG Less Than 30 59 Comp Metabolic Panel 10/19/2011 [facility] Sodium 140 mmol/L 135-[address] [place] [address] [phone] Potassium 3.9 mmol/L 3.5-5.0 Chloride 104 mmol/L 101-111 Co2 (Carbon Dioxide) 28.0 mmol/L 22-32 Anion Gap 8.0 mmol/L 2-11 60 Glucose 129 mg/dL High 70-100 BUN 17 mg/dL 6-24 Creatinine 1.1 mg/dL 0.50-1.40 One Over Creatinine 0.90 BUN/Creatinine Ratio 15.5 8-20 Calcium 9.4 mg/dL 8.1-9.9 Total Protein 6.5 GM/DL 6.2-8.1 Albumin 4.3 GM/DL 3.2-5.2 Globulin 2.2 GM/DL 2-4 Albumin/Globulin Ratio 2.0 1-3 Bilirubin Total 1.2 mg/dL 0.4-1.5 61 Alkaline Phosphatase 58 U/L 39-117 Alt (SGPT) 16 U/L Low 17-63 Ast (Sgot) 19 U/L 12-42 eGFR Non- 65.8 > 60 eGFR 84.6 > 60 62 Lipid Profile 10/19/2011 [facility] Triglyceride 86 mg/dL 40- 200 (Trig/Chol/HDL) [address] [place] [address] [phone] Cholesterol 120 mg/dL Less Than 200 63 High Density Lipoprotein 47 mg/dL 40-60 64 Cholesterol/HDL Ratio 2.55 AVERAGE 1-4.97 Low Density Lipoprotein 56 mg/dL Less Than 100 65 Liver Function 10/19/2011 [facility] Bilirubin Direct 0.1 mg/dL 0.1-0.5 Panel [address] [place] [address] [phone] Indirect Bilirubin 1.1 mg/dL High 0.3-1.0 66 Laboratory test 10/19/2011 [facility] Vitamin B12 355 pg/mL 180-914 finding [address] [place] [address] [phone] Surgical 10/04/2011 [facility] Surgical [address] [place] [address] Pathology ------ [place] [address] <SEE NOTE> [phone] Laboratory test 04/20/2011 [facility] PSA,Diagnostic 0.88 NG/ML 0-[address] [place] [address] [phone] DR [facility] 11/15/2010 [facility] TSH 1.20 0.34-5.[address] [place] [place] [address] MIU/[place] [address] [phone] Comp Metabolic 11/15/2010 [facility] Sodium 137 mmol/L 135- 145 Panel [address] [place] [address] [phone] Potassium 4.0 mmol/L 3.5-5.0 Chloride 103 mmol/L 101-111 Co2 (Carbon Dioxide) 29.0 mmol/L 22-32 Anion Gap 5.0 mmol/L 2-11 69 Glucose 169 mg/dL High 70-100 BUN 16 mg/dL 6-24 Creatinine 0.80 mg/dL 0.50-1.40 One Over Creatinine 1.20 BUN/Creatinine Ratio 20.0 8-20 Calcium 9.2 mg/dL 8.1-9.9 Total Protein 6.6 GM/DL 6.2-8.1 Albumin 4.0 GM/DL 3.2-5.2 Globulin 2.6 GM/DL 2-4 Albumin/Globulin Ratio 1.5 1-3 Bilirubin Total 0.8 mg/dL 0.4-1.5 70 Alkaline Phosphatase 74 U/L 39-117 Alt (SGPT) 21 U/L 17-63 Ast (Sgot) 19 U/L 12-42 eGFR Non- 95.3 > 60 eGFR 122.6 > 60 71 Lipid Profile 11/15/2010 [facility] Triglyceride 116 mg/dL 40 -200 (Trig/Chol/HDL) [address] [place] [address] [phone] Cholesterol 151 mg/dL Less Than 200 72 High Density Lipoprotein 51 mg/dL 40-60 73 Cholesterol/HDL Ratio 2.96 AVERAGE 1-4.97 Low Density Lipoprotein 77 mg/dL Less Than 100 74 CBC Auto Diff 11/15/2010 [facility] White Blood 6.3 CUMM 4.8- 10.[address] [place] [address] [phone] Red Cell Count 4.76 CUMM 4.6-6.2 Hemoglobin 14.9 g/dL 14.0-18.0 Hematocrit 44 % 42-52 Mean Corpuscular Volume 92 um3 80-94 Mean Corpuscular Hemoglob 31 pg 27-31 Mean Corpuscular HGB Cone 34 g/dL 32-36 Redcell Distribution WDTH 13 % 10.5-15 Platelet Count 224 CUMM 150-450 Mean Platelet Volume 7.6 um3 7.4-10.4 Gran % 60.0 % 38-83 Lymph % 27.8 % 25-47 Mononuclear % 9.2 % High 1-9 Eosinophil % 2.4 % 0-6 Basophil % 0.6 % 0-2 Abs Lymphs 1.7 1.0-4.8 Abs Mononuclear 0.6 0-0.8 Absolute Neutrophil Count 3.8 1.5-7.7 Abs Eosinophils 0.2 0-0.6 Abs Basophils 0 0-0.2 Laboratory test 11/15/2010 [facility] Hemoglobin A1c 9.3 % High Less [address] Than [address]0 [place] [address] [phone] Urine 11/15/2010 [facility] Microalbumin 17.[address] (MG/L) mg/[place] [address] [phone] Urine Creatinine 168.71 mg/dL Paulo Alb/Creatinine Ratio 10.0 UG/MG Less Than 30 76 Urine Microalbumin 06/04/2010 [facility] Microalbumin (MG/L) 8.0 mg/L Random [address] [place] [address] [phone] Urine Creatinine 98.37 mg/dL Paulo Alb/Creatinine Ratio 8.1 UG/MG Less Than 30 77 CBC With 06/04/2010 [facility] White Blood 5.8 CUMM 4.8-10.8 Electronic Diff [address] [place] [address] [phone] Red Cell Count 4.73 CUMM 4.6-6.2 Hemoglobin 14.8 g/dL 14.0-18.0 Hematocrit 42 % 42-52 Mean Corpuscular Volume 89 um3 80-94 Mean Corpuscular Hemoglob 31 pg 27-31 Mean Corpuscular HGB Cone 35 g/dL 32-36 Redcell Distribution WDTH 14 % 10.5-15 Platelet Count 199 CUMM 150-450 Mean Platelet Volume 6.4 um3 Low 7.4-10.4 Gran % 56.4 % 38-83 Lymph % 31.1 % 25-47 Mononuclear % 9.5 % High 1-9 Eosinophil % 2.4 % 0-6 Basophil % 0.6 % 0-2 Abs Lymphs 1.8 1.0-4.8 Abs Mononuclear 0.5 0-0.8 Absolute Neutrophil Count 3.2 1.5-7.7 Abs Eosinophils 0.1 0-0.6 Abs Basophils 0 0-0.2 Comp Metabolic Panel 06/04/2010 [facility] Sodium 139 mmol/L 135-[address] [place] [address] [phone] Potassium 3.6 mmol/L 3.5-5.0 Chloride 103 mmol/L 101-111 Co2 (Carbon Dioxide) 29.0 mmol/L 22-32 Anion Gap 7.0 mmol/L 2-11 78 Glucose 116 mg/dL High 70-100 BUN 18 mg/dL 6-24 Creatinine 0.90 mg/dL 0.50-1.40 One Over Creatinine 1.10 BUN/Creatinine Ratio 20.0 8-20 Calcium 9.2 mg/dL 8.1-9.9 Total Protein 6.1 GM/DL Low 6.2-8.1 Albumin 3.9 GM/DL 3.2-5.2 Globulin 2.2 GM/DL 2-4 Albumin/Globulin Ratio 1.8 1-3 Bilirubin Total 0.9 mg/dL 0.4-1.5 79 Alkaline Phosphatase 68 U/L 39-117 Alt (SGPT) 19 U/L 17-63 Ast (Sgot) 17 U/L 12-42 eGFR Non- 88.7 > 60 eGFR 107.3 > 60 80 Lipid Profile 06/04/2010 [facility] Triglyceride 113 mg/dL 40 -200 (Trig/Chol/HDL) [address] [place] [address] [phone] Cholesterol 139 mg/dL Less Than 200 81 High Density Lipoprotein 52 mg/dL 40-60 82 Cholesterol/HDL Ratio 2.67 AVERAGE 1-4.97 Low Density Lipoprotein 64 mg/dL Less Than 100 83 Liver Function 06/04/2010 [facility] Bilirubin Direct 0.2 mg/dL 0.1-0.5 Panel [address] [place] [address] [phone] Indirect Bilirubin 0.7 mg/dL 0.3-1.0 84 Laboratory test 06/04/2010 [facility] PSA,Diagnostic 1.73 NG/ML 0-4 85 finding [address] [place] [address] [phone] Laboratory test 07/22/2009 [facility] PSA,Diagnostic 1.74 NG/ML 0-4 86, 87 finding [address] [place] [address] [phone] Lipid Profile 01/28/2009 [facility] Triglyceride 76 mg/dL 40- 200 (Trig/Chol/HDL) [address] [place] [address] [phone] Cholesterol 136 mg/dL Less Than 200 88 High Density Lipoprotein 54 mg/dL 40-60 89 Cholesterol/HDL Ratio 2.52 AVERAGE 1-4.97 Low Density Lipoprotein 67 mg/dL Less Than 100 90 Liver Function 01/28/2009 [facility] Bilirubin Direct 0.2 mg/dL 0.1-0.[address] [place] [address] [phone] Indirect Bilirubin 0.8 mg/dL High 0.1-0.75 Urine Microalbumin 01/28/2009 [facility] Microalbumin 19.0 mg/L Random [address] (MG/L) [place] [address] [phone] Urine Creatinine 201.37 mg/dL Paulo Alb/Creatinine Ratio 9.4 UG/MG Less Than 30 91 Comp Metabolic Panel 01/28/2009 [facility] Sodium 139 mmol/L 135-[address] [place] [address] [phone] Potassium 4.3 mmol/L 3.5-5.0 Chloride 106 mmol/L 101-111 Co2 (Carbon Dioxide) 29.0 mmol/L 22-32 Anion Gap 4.0 mmol/L 2-11 92 Glucose 101 mg/dL High 70-100 93 BUN 13 mg/dL 6-24 Creatinine 1.00 mg/dL 0.50-1.40 One Over Creatinine 1.00 BUN/Creatinine Ratio 13.0 8-20 Calcium 9.5 mg/dL 8.1-9.9 94 Total Protein 6.5 GM/DL 6.2-8.1 Albumin 4.2 GM/DL 3.2-5.2 Globulin 2.3 GM/DL 2-4 Albumin/Globulin Ratio 1.8 1-3 Bilirubin Total 1.0 mg/dL 0.4-1.5 95 Alkaline Phosphatase 63 U/L 39-117 Alt (SGPT) 26 U/L 17-63 Ast (Sgot) 23 U/L 12-42 eGFR Non- 78.7 > 60 eGFR 95.3 > 60 96 Laboratory 12/04/2008 [facility] PSA,Diagnostic 1.45 0-4 97 test finding [address] [place] NG/[place] [address] [phone] Laboratory 10/16/2008 [facility] PSA,Diagnostic 3.03 0-4 98 test finding [address] NG/[place] [address] [phone] Surgical 08/29/2008 [facility] Surgical Pathology --------- [address] ------- [place] [address] <SEE [phone] NOTE> Laboratory 04/02/2008 [facility] PSA,Diagnostic 1.58 0-4 100 test finding [address] [place] NG/[place] [address] [phone] Laboratory 02/20/2008 [facility] PTT (Aptt) 25.3 20.1-28 101 , test finding [address] .2 [address] [place] [address] [phone] CBC With 02/20/2008 [facility] White Blood Count 6.6 CUMM 4.8 -10. Electronic [address] 8 [place] [address] [phone] Red Cell Count 4.68 CUMM 4.6-6.2 Hemoglobin 14.7 g/dL 14.0-18.0 Hematocrit 42 % 42-52 Mean Corpuscular Volume 90 um3 80-94 Mean Corpuscular Hemoglob 31 pg 27-31 Mean Corpuscular HGB Cone 35 g/dL 32-36 Redcell Distribution WDTH 13 % 10.5-15 Platelet Count 254 CUMM 150-450 Mean Platelet Volume 7.0 um3 Low 7.4-10.4 Gran % 64.7 % 38-83 Lymph % 23.0 % 20-45 Mononuclear % 10.1 % High 1-9 Eosinophil % 1.4 % 0-6 Basophil % 0.8 % 0-2 Abs Lymphs 1.5 1.0-4.8 Abs Mononuclear 0.7 0-0.8 Absolute Neutrophil Count 4.3 1.5-7.7 Abs Eosinophils 0.1 0-0.6 Abs Basophils 0.1 0-0.2 Protime 02/20/2008 [facility] Protime 10.5 Low 10.9-13.[address] [place] [address] [phone] Inr 0.75 103 Basic Metabolic Panel 02/20/2008 [facility] Sodium 142 mmol/L 135-[address] [place] [address] [phone] Potassium 4.8 mmol/L 3.5-5.0 Chloride 106 mmol/L 101-111 Co2 (Carbon Dioxide) 29.0 mmol/L 22-32 Anion Gap 7.0 mmol/L 2-11 104 Glucose 108 mg/dL High 70-100 105 BUN 17 mg/dL 6-24 Creatinine 1.1 mg/dL 0.5-1.4 One Over Creatinine 0.90 BUN/Creatinine Ratio 15.5 8-20 Calcium 9.3 mg/dL 8.1-9.9 106 Gram Positive Sensitivity 01/13/2008 [facility] Clindamycin <= 0.[address] [place] [address] [phone] Ciprofloxacin <=0.5 S Erythromycin <=0.25 S Gentamicin <=0.5 S Levofloxacin 0.25 S Linezolid 2 S Oxacillin 0.5 S Rifampin <=0.5 S Trimeth-Sulfa <=10 S Tetracycline <=1 S Vancomycin <=1 S Laboratory test 01/10/2008 [facility] Culture FEW [STAPHYLOCOC [address] Sensitivity <SEE NOTE> [place] [address] [phone] Surgical 10/23/2007 [facility] Surgical [address] Pathology <SEE NOTE> [place] [address] [phone] Comp Metabolic 07/05/2007 [facility] One Over 0.90 [address] [place] [address] [phone] Anion Gap 4.0 mmol/L 2-11 110 Albumin/Globulin Ratio 1.7 1-3 Albumin 4.0 GM/DL 3.2-5.2 Alkaline Phosphatase 69 U/L 39-117 Alt (SGPT) 33 U/L 17-63 Ast (Sgot) 26 U/L 12-42 BUN 17 mg/dL 6-24 Calcium 9.5 mg/dL 8.7-10.2 Chloride 106 mmol/L 101-111 Co2 (Carbon Dioxide) 32.0 mmol/L 22-32 Globulin 2.4 GM/DL 2-4 Glucose 132 mg/dL High 70-105 Potassium 4.4 mmol/L 3.5-5.0 Sodium 142 mmol/L 135-145 Bilirubin Total 0.9 mg/dL 0.4-1.5 Total Protein 6.4 GM/DL 6.2-8.1 BUN/Creatinine Ratio 15.5 8-20 Creatinine 1.1 mg/dL 0.5-1.4 Lipid Profile 07/05/2007 [facility] Cholesterol/HDL 2.65 1- 4.97 (Trig/Chol/HDL) [address] Ratio AVERAGE [place], [place] [id number] [phone] Cholesterol 135 mg/dL Less Than 200 111 Triglyceride 70 mg/dL 40-200 High Density Lipoprotein 51 mg/dL 40-60 Low Density Lipoprotein 70 mg/dL Less Than 100 112 Laboratory test 07/05/2007 [facility] PSA Screening 1.85 NG/ML 0-4 [address] [place] [address] [phone] TSH 1.28 MIU/ML 0.34-5.60 Hemoglobin A1c 8.8 % High <6.0 114 CBC With 07/05/2007 [facility] White Blood 7.0 CUMM 4.8-10.8 Electronic Diff [address] [place] [address] [phone] Abs Basophils 0 0-0.2 Abs Eosinophils 0.2 0-0.6 Absolute Neutrophil Count 4.2 1.5-7.7 Abs Lymphs 1.8 1.0-4.8 Abs Mononuclear 0.8 0-0.8 Basophil % 0.5 % 0-2 Hematocrit 44 % 42-52 Hemoglobin 15.3 g/dL 14.0-18.0 Eosinophil % 2.8 % 0-6 Gran % 59.3 % 38-83 Lymph % 26.2 % 20-45 Mean Corpuscular HGB Cone 35 g/dL 32-36 Mean Corpuscular Hemoglob 31 pg 27-31 Mean Corpuscular Volume 90 um3 80-94 Mean Platelet Volume 7.8 um3 7.4-10.4 Mononuclear % 11.2 % High 1-9 Platelet Count 261 CUMM 150-450 Red Cell Count 4.93 CUMM 4.6-6.2 Redcell Distribution WDTH 13 % 10.5-15 1 Unable to calculate due to low microalbumin 2 Serum levels of PSA measured using the [employer] DXI Hybritech immunoassay should not be interpreted as absolute evidence of the presence or absence of disease. The PSA value should be used in conjunction with other pertinent clinical diagnostic procedures. A PSA value in the range of 0.1 to 0.6 ng/ml is indeterminate if being used as an indicator of recurrent or residual disease. The values obtained with different assay methods or kits cannot be used interchangeably. 3 Because ethnic data is not always readily available, this report includes an eGFR for both -Americans and non- Americans. The National Kidney Disease Education Program (NKDEP) does not endorse the use of the MDRD equation for patients that are not between the ages of 18 and 70, are , have extremes of body size, muscle mass, or nutritional status, or are non- or non-. According to the National Kidney Foundation, irrespective of diagnosis, the stage of the disease is based on the level of kidney function: Stage Description GFR(mL/min/1.73 m(2)) 1 Kidney damage with normal or decreased GFR 90 2 Kidney damage with mild decrease in GFR 60-89 3 Moderate decrease in GFR 30-59 4 Severe decrease in GFR 15-29 5 Kidney failure <15 (or dialysis) 4 Desirable: <150 Borderline High: 150-199 High: 200-499 Very High: >500 5 Desirable: <200 Borderline High: 200-239 High: >239 6 Low: <40 Desirable: 40-60 High: >60 7 Desirable: <100 Near Optimal: 100-129 Borderline High: 130-159 High: 160-189 Very High: >189 8 Normal Range 180 to 914 Indeterminate Range 145 to 180 Deficient Range <145 9 Serum levels of PSA measured using the [employer] DXI Hybritech immunoassay should not be interpreted as absolute evidence of the presence or absence of disease. The PSA value should be used in conjunction with other pertinent clinical diagnostic procedures. A PSA value in the range of 0.1 to 0.6 ng/ml is indeterminate if being used as an indicator of recurrent or residual disease. The values obtained with different assay methods or kits cannot be used interchangeably. 10 Desirable <150 Borderline high 150-199 High 200-499 Very High >500 11 Desirable <200 Borderline high 200-239 High >239 12 Low <40 Desirable: 40-60 High: >60 13 Desirable: <100 mg/dL Near Optimal: 100-129 mg/dL Borderline High: 130-159 mg/dL High: 160-189 mg/dL Very High: >189 mg/dL 14 Because ethnic data is not always readily available, this report includes an eGFR for both -Americans and non- Americans. The National Kidney Disease Education Program (NKDEP) does not endorse the use of the MDRD equation for patients that are not between the ages of 18 and 70, are , have extremes of body size, muscle mass, or nutritional status, or are non- or non-. According to the National Kidney Foundation, irrespective of diagnosis, the stage of the disease is based on the level of kidney function: Stage Description GFR(mL/min/1.73 m(2)) 1 Kidney damage with normal or decreased GFR 90 2 Kidney damage with mild decrease in GFR 60-89 3 Moderate decrease in GFR 30-59 4 Severe decrease in GFR 15-29 5 Kidney failure <15 (or dialysis) 15 Unable to calculate due to low microalbumin 16 Because ethnic data is not always readily available, this report includes an eGFR for both -Americans and non- Americans. The National Kidney Disease Education Program (NKDEP) does not endorse the use of the MDRD equation for patients that are not between the ages of 18 and 70, are , have extremes of body size, muscle mass, or nutritional status, or are non- or non-. According to the National Kidney Foundation, irrespective of diagnosis, the stage of the disease is based on the level of kidney function: Stage Description GFR(mL/min/1.73 m(2)) 1 Kidney damage with normal or decreased GFR 90 2 Kidney damage with mild decrease in GFR 60-89 3 Moderate decrease in GFR 30-59 4 Severe decrease in GFR 15-29 5 Kidney failure <15 (or dialysis) 17 Desirable <150 Borderline high 150-199 High 200-499 Very High >500 18 Desirable <200 Borderline high 200-239 High >239 19 Low <40 Desirable: 40-60 High: >60 20 Desirable: <100 mg/dL Near Optimal: 100-129 mg/dL Borderline High: 130-159 mg/dL High: 160-189 mg/dL Very High: >189 mg/dL 21 Serum levels of PSA measured using the [employer] DXI Hybritech immunoassay should not be interpreted as absolute evidence of the presence or absence of disease. The PSA value should be used in conjunction with other pertinent clinical diagnostic procedures. A PSA value in the range of 0.1 to 0.6 ng/ml is indeterminate if being used as an indicator of recurrent or residual disease. The values obtained with different assay methods or kits cannot be used interchangeably. 22 Block Feeder: [id number] YOBANI Wilks 23 Because ethnic data is not always readily available, this report includes an eGFR for both -Americans and non- Americans. The National Kidney Disease Education Program (NKDEP) does not endorse the use of the MDRD equation for patients that are not between the ages of 18 and 70, are , have extremes of body size, muscle mass, or nutritional status, or are non- or non-. According to the National Kidney Foundation, irrespective of diagnosis, the stage of the disease is based on the level of kidney function: Stage Description GFR(mL/min/1.73 m(2)) 1 Kidney damage with normal or decreased GFR 90 2 Kidney damage with mild decrease in GFR 60-89 3 Moderate decrease in GFR 30-59 4 Severe decrease in GFR 15-29 5 Kidney failure <15 (or dialysis) 24 Desirable <150 Borderline high 150-199 High 200-499 Very High >500 25 Desirable <200 Borderline high 200-239 High >239 26 Low <40 Desirable: 40-60 High: >60 27 Desirable: <100 mg/dL Near Optimal: 100-129 mg/dL Borderline High: 130-159 mg/dL High: 160-189 mg/dL Very High: >189 mg/dL 28 Because ethnic data is not always readily available, this report includes an eGFR for both -Americans and non- Americans. The National Kidney Disease Education Program (NKDEP) does not endorse the use of the MDRD equation for patients that are not between the ages of 18 and 70, are , have extremes of body size, muscle mass, or nutritional status, or are non- or non-. According to the National Kidney Foundation, irrespective of diagnosis, the stage of the disease is based on the level of kidney function: Stage Description GFR(mL/min/1.73 m(2)) 1 Kidney damage with normal or decreased GFR 90 2 Kidney damage with mild decrease in GFR 60-89 3 Moderate decrease in GFR 30-59 4 Severe decrease in GFR 15-29 5 Kidney failure <15 (or dialysis) 29 Desirable <150 Borderline high 150-199 High 200-499 Very High >500 30 Desirable <200 Borderline high 200-239 High >239 31 Low <40 Desirable: 40-60 High: >60 32 Desirable: <100 mg/dL Near Optimal: 100-129 mg/dL Borderline High: 130-159 mg/dL High: 160-189 mg/dL Very High: >189 mg/dL 33 Normal Range 180 to 914 Indeterminate Range 145 to 180 Deficient Range <145 34 Serum levels of PSA measured using the [employer] DXI Hybritech immunoassay should not be interpreted as absolute evidence of the presence or absence of disease. The PSA value should be used in conjunction with other pertinent clinical diagnostic procedures. A PSA value in the range of 0.1 to 0.6 ng/ml is indeterminate if being used as an indicator of recurrent or residual disease. The values obtained with different assay methods or kits cannot be used interchangeably. 35 FASTING 36 Because ethnic data is not always readily available, this report includes an eGFR for both -Americans and non- Americans. The National Kidney Disease Education Program (NKDEP) does not endorse the use of the MDRD equation for patients that are not between the ages of 18 and 70, are , have extremes of body size, muscle mass, or nutritional status, or are non- or non-. According to the National Kidney Foundation, irrespective of diagnosis, the stage of the disease is based on the level of kidney function: Stage Description GFR(mL/min/1.73 m(2)) 1 Kidney damage with normal or decreased GFR 90 2 Kidney damage with mild decrease in GFR 60-89 3 Moderate decrease in GFR 30-59 4 Severe decrease in GFR 15-29 5 Kidney failure <15 (or dialysis) 37 Desirable <150 Borderline high 150-199 High 200-499 Very High >500 38 Desirable <200 Borderline high 200-239 High >239 39 Low <40 Desirable: 40-60 High: >60 40 Desirable <100 Near Optimal 100-129 Borderline high 130-159 High 160-189 Very High >189 41 Microalbuminuria in a random sample is defined as: Microalbumin/Creatinine ratio of 30-299 ug/mg. 42 Serum levels of PSA measured using the [employer] DXI Hybritech immunoassay should not be interpreted as absolute evidence of the presence or absence of disease. The PSA value should be used in conjunction with other pertinent clinical diagnostic procedures. A PSA value in the range of 0.1 to 0.6 ng/ml is indeterminate if being used as an indicator of recurrent or residual disease. The values obtained with different assay methods or kits cannot be used interchangeably. 43 Calculi, Urinary Color Brown Size mm Specimen received as fragments. Weight 32.0 mg Composition . Percentage (Represents the % composition) Ca oxalate monohydr. 97 % Calcium phosphate 03 % Nidus Nidus composed of Calcium oxalate monohydrate. Please note: . Calculi report without photograph will follow via computer, mail, or belt builder helper delivery. Comment: . Physician questions regarding Calculi Analysis contact [facility] at: [phone]. Test Performed: [id number] [id number] Dir: Wendy Avery MD Test result returned from reference laboratory and the interpretation and photograph have been sent via the veterinary laboratory technician. 44 Calculi, Urinary Color Brown A Size mm Specimen received as fragments. Weight 32.0 mg Composition Percentage (Represents the % composition) Ca oxalate monohydr. 97 % Calcium phosphate 03 % Nidus Nidus composed of Calcium oxalate monohydrate. Please note: Calculi report without photograph will follow via computer, mail, or belt builder helper delivery. Comment: Physician questions regarding Calculi Analysis contact [facility] at: [phone] Test Performed: [email or web address] [id number] Dir: Wendy Avery MD Test result returned from reference laboratory and the interpretation and photograph have been sent via the veterinary laboratory technician. 45 Calculi, Urinary Color Brown A Size mm Specimen received as fragments. Weight 32.0 mg Composition Percentage (Represents the % composition) Ca oxalate monohydr. 97 % Calcium phosphate 03 % Nidus Nidus composed of Calcium oxalate monohydrate. Photo Photograph will follow under separate cover. Comment: Physician questions regarding Calculi Analysis contact [facility] at: [phone] Please note: Calculi report with photograph will follow via computer, mail or belt builder helper delivery. Test Performed: [employer] [address] [id number] Dir: Wendy Avery MD --- 03/21/13 0734 --- [facility] previously reported as: See comment Calculi, Urinary Color Brown A Size mm Specimen received as fragments. Weight 32.0 mg Composition Percentage (Represents the % composition) Ca oxalate monohydr. 97 % Calcium phosphate 03 % Nidus Nidus composed of Calcium oxalate monohydrate. Please note: Calculi report without photograph will follow via computer, mail, or belt builder helper delivery. Comment: Physician questions regarding Calculi Analysis contact [facility] at: [phone] Test Performed: [employer] [id number] Dir: Wendy Avery MD Test result returned from reference laboratory and the interpretation and photograph have been sent via the veterinary laboratory technician. 46 Because ethnic data is not always readily available, this report includes an eGFR for both -Americans and non- Americans. The National Kidney Disease Education Program (NKDEP) does not endorse the use of the MDRD equation for patients that are not between the ages of 18 and 70, are , have extremes of body size, muscle mass, or nutritional status, or are non- or non-. According to the National Kidney Foundation, irrespective of diagnosis, the stage of the disease is based on the level of kidney function: Stage Description GFR(mL/min/1.73 m(2)) 1 Kidney damage with normal or decreased GFR 90 2 Kidney damage with mild decrease in GFR 60-89 3 Moderate decrease in GFR 30-59 4 Severe decrease in GFR 15-29 5 Kidney failure <15 (or dialysis) 47 RUN DATE: 11/27/12 [facility] LAB LIVE PAGE 1 RUN TIME: [address] [place] [id number] Specimen Inquiry Name: MUKULSTACY Pereira : [address]: Sonia Majano MD Acct: [id number] Unit: [id number] AGE: 72 Location: ED Re11/24/12 SEX: M Status: DEP ER SPEC: [id number] JULIO CESAR: 11/24/12-[address] [facility] [address]: Stacy AVILA REQ: [id number] RECD: 11/24/12 STATUS: BRANDY MACHADO DR: [facility] Rich Kim III, MD _ SOURCE: URINE SPDESC: ORDERED: Urine Culture Procedure Result Verified Site Urine Culture Final 11/27/12828 ML Organism 1 STAPHYLOCOCCUS EPIDERMIDIS [place] Count 75-100,000 (Many) CFU/ML 1. STAPHYLOCOCCUS EPIDERMIDIS M.I.C. RX --------- ------ Penicillin >=0.5 R Gentamicin <=0.5 S Linezolid 2 S Nitrofurantoin <=16 S Oxacillin >=4 R * Quinupristin/Dalfopristin <=0.25 S Rifampin <=0.5 S Tetracycline <=1 S Doxycycline - Deduced S * Minocycline - Deduced S Tigecycline <=0.12 S Vancomycin 1 S Imipenem-Deduced R * Ampicillin/Sulbactam-Deduced R Cefazolin-Deduced R * These antibiotics are not available in the [facility] Formulary Contact the Microbiology Department for any additional antibiotic reporting. END OF REPORT * ML=Testing performed at Main Lab DEPARTMENT OF PATHOLOGY, [address] [place] [address] Nikolay Alaczar M.D. Director [facility] Permit #[id number] Microalbuminuria in a random sample is defined as: Microalbumin/Creatinine ratio of 30-299 ug/mg. 49 Because ethnic data is not always readily available, this report includes an eGFR for both -Americans and non- Americans. The National Kidney Disease Education Program (NKDEP) does not endorse the use of the MDRD equation for patients that are not between the ages of 18 and 70, are , have extremes of body size, muscle mass, or nutritional status, or are non- or non-. According to the National Kidney Foundation, irrespective of diagnosis, the stage of the disease is based on the level of kidney function: Stage Description GFR(mL/min/1.73 m(2)) 1 Kidney damage with normal or decreased GFR 90 2 Kidney damage with mild decrease in GFR 60-89 3 Moderate decrease in GFR 30-59 4 Severe decrease in GFR 15-29 5 Kidney failure <15 (or dialysis) 50 HDL Interpretation: Undesirable: High Risk: Less than 40 mg/dL Desirable: Low Risk: Greater than 60 mg/dL 51 LDL Interpretation: Low Risk Optimal Level: LDL Less than 100 mg/dL Near or Above Optimal: LDL 100-129 mg/dL Borderline High Risk: LDL 130-159 mg/dL High Risk: LDL 160-189 mg/dL Very High Risk: LDL Greater than 189 mg/dL 52 FASTING 53 Because ethnic data is not always readily available, this report includes an eGFR for both -Americans and non- Americans. The National Kidney Disease Education Program (NKDEP) does not endorse the use of the MDRD equation for patients that are not between the ages of 18 and 70, are , have extremes of body size, muscle mass, or nutritional status, or are non- or non-. According to the National Kidney Foundation, irrespective of diagnosis, the stage of the disease is based on the level of kidney function: Stage Description GFR(mL/min/1.73 m(2)) 1 Kidney damage with normal or decreased GFR 90 2 Kidney damage with mild decrease in GFR 60-89 3 Moderate decrease in GFR 30-59 4 Severe decrease in GFR 15-29 5 Kidney failure <15 (or dialysis) 54 Serum levels of PSA measured using the [employer] DXI Hybritech immunoassay should not be interpreted as absolute evidence of the presence or absence of disease. The PSA value should be used in conjunction with other pertinent clinical diagnostic procedures. A PSA value in the range of 0.1 to 0.6 ng/ml is indeterminate if being used as an indicator of recurrent or residual disease. The values obtained with different assay methods or kits cannot be used interchangeably. 55 HDL Interpretation: Undesirable: High Risk: Less than 40 MG/DL Desirable: Low Risk: Greater than 60 MG/DL 56 LDL Interpretation: Low Risk Optimal Level: LDL Less than 100 MG/DL Near or Above Optimal: LDL 100-129 MG/DL Borderline High Risk: LDL 130-159 MG/DL High Risk: LDL 160-189 MG/DL Very High Risk: LDL Greater than 189 MG/DL 57 Because ethnic data is not always readily available, this report includes an eGFR for both -Americans and non- Americans. The National Kidney Disease Education Program (NKDEP) does not endorse the use of the MDRD equation for patients that are not between the ages of 18 and 70, are , have extremes of body size, muscle mass, or nutritional status, or are non- or non-. According to the National Kidney Foundation, irrespective of diagnosis, the stage of the disease is based on the level of kidney function: Stage Description GFR(mL/min/1.73 m(2)) 1 Kidney damage with normal or decreased GFR 90 2 Kidney damage with mild decrease in GFR 60-89 3 Moderate decrease in GFR 30-59 4 Severe decrease in GFR 15-29 5 Kidney failure <15 (or dialysis) 58 Therapeutic target for the treatment of diabetes Mellitus patients is <7% HBA1C, and in selective patients <6.0%.Please refer to [place] [employer] Association Diabetic care guidelines for further information. 59 MICROALBUMINURIA IN A RANDOM SAMPLE IS DEFINED : MICROALBUMIN/CREATININE RATIO OF 30-299 ug/mg. . 60 Anion gap measurement may be of limited value in the presence of any alkalosis, especially in a combined acid base disorder. . 61 A metabolite of Naproxen, O-desmethylnaproxen, has been shown to interfere with the Jendrassik-Hubbardston method for measuring total bilirubin. Samples from patients who have taken Naproxen have shown spurious elevation in total bilirubin levels. 62 Because ethnic data is not always readily available, this report includes an eGFR for both -Americans and non- Americans. The National Kidney Disease Education Program (NKDEP) does not endorse the use of the MDRD equation for patients that are not between the ages of 18 and 70, are , have extremes of body size, muscle mass, or nutritional status, or are non- or non-. According to the National Kidney Foundation, irrespective of diagnosis, the stage of the disease is based on the level of kidney function: Stage Description GFR(mL/min/1.73 m(2)) 1 Kidney damage with normal or decreased GFR 90 2 Kidney damage with mild decrease in GFR 60-89 3 Moderate decrease in GFR 30-59 4 Severe decrease in GFR 15-29 5 Kidney failure <15 (or dialysis) 63 CHOLESTEROL INTERPRETATION: Desirable: Less than 200 MG/DL Borderline-High Risk: 200-239 MG/DL High-Risk: 240 MG/DL and over 64 HDL INTERPRETATION: Undesirable: High Risk: Less than 40 MG/DL Desirable: Low Risk: Greater than 60 MG/DL 65 LDL INTERPRETATION: Low Risk Optimal Level: LDL Less than 100 MG/DL Near or Above Optimal: LDL 100-129 MG/DL Borderline High Risk: LDL 130-159 MG/DL High Risk: LDL 160-189 MG/DL Very High Risk: LDL Greater than 189 MG/DL 66 Please note updated reference range, effective 12/10/09 67 ---- RUN DATE: 10/05/11 [facility] NMI LIVE PAGE 1 RUN TIME: 1519 Specimen Inquiry RUN USER: INTERFACE -- Name: MUKULSTACY#: [id number] Status: REG REF Re10/04/11 Age/Sex: 71/M Unit#: [id number] Location: [place] : 39 -- Specimen: [id number] SOUT Spec Date:10/04/11- Suad Dr: Girish ortiz MD Spec Type: SURGICAL P Received:10/04/11-6000 Copies to: Rich Kim III, MD SPECIMEN BIOPSY HEPATIC FLEXURE POLYP HISTORY POST-OP DIAGNOSIS: Colonoscopy to cecum. Polyp at hepatic flexure. CLINICAL INFORMATION: History of polyps. GROSS DESCRIPTION The specimen is received in formalin labelled Stacy Gilman, Biopsy Hepatic Flexure Polyp, and consists of a fragment of yellow tissue measuring 0.4 x 0.3 x 0.3 cm. Submitted entirely, one cassette. DIAGNOSIS Hepatic flexure, biopsy: A. Tubular adenoma. B. No high grade dysplasia or malignancy. Signed Electronically by: ROCIO YAN 10/05/11 1519 -- -- DEPARTMENT OF PATHOLOGY, [address] [place] [address] [facility] Permit #[id number] Nikolay Alcazar M.D. Director Rocio Yan M.D. Hand Box Folder Dir fabián -- 68 * SERUM LEVELS OF PSA MEASURED USING THE EDGAR LV ACCESS HYBRITECH IMMUNOASSAY SHOULD NOT BE INTERPRETED ABSOLUTE EVIDENCE OF THE PRESENCE OR ABSENCE OF DISEASE. THE PSA VALUE SHOULD BE USED IN CONJUNCTION WITH OTHER PERTINENT CLINICAL DIAGNOSTIC PROCEDURES. 69 Anion gap measurement may be of limited value in the presence of any alkalosis, especially in a combined acid base disorder. . 70 A metabolite of Naproxen, O-desmethylnaproxen, has been shown to interfere with the Jendrassik-Hubbardston method for measuring total bilirubin. Samples from patients who have taken Naproxen have shown spurious elevation in total bilirubin levels. 71 Because ethnic data is not always readily available, this report includes an eGFR for both -Americans and non- Americans. The National Kidney Disease Education Program (NKDEP) does not endorse the use of the MDRD equation for patients that are not between the ages of 18 and 70, are , have extremes of body size, muscle mass, or nutritional status, or are non- or non-. According to the National Kidney Foundation, irrespective of diagnosis, the stage of the disease is based on the level of kidney function: Stage Description GFR(mL/min/1.73 m(2)) 1 Kidney damage with normal or decreased GFR 90 2 Kidney damage with mild decrease in GFR 60-89 3 Moderate decrease in GFR 30-59 4 Severe decrease in GFR 15-29 5 Kidney failure <15 (or dialysis) 72 CHOLESTEROL INTERPRETATION: Desirable: Less than 200 MG/DL Borderline-High Risk: 200-239 MG/DL High-Risk: 240 MG/DL and over 73 HDL INTERPRETATION: Undesirable: High Risk: Less than 40 MG/DL Desirable: Low Risk: Greater than 60 MG/DL 74 LDL INTERPRETATION: Low Risk Optimal Level: LDL Less than 100 MG/DL Near or Above Optimal: LDL 100-129 MG/DL Borderline High Risk: LDL 130-159 MG/DL High Risk: LDL 160-189 MG/DL Very High Risk: LDL Greater than 189 MG/DL 75 THERAPEUTIC TARGET FOR THE TREATMENT OF DIABETES MELLITUS PATIENTS IS <7% HBA1C, AND IN SELECTIVE PATIENTS <6.0%. PLEASE REFER TO [place] [employer] DIABETIC CARE GUIDELINES FOR FURTHER INFORMATION. 76 MICROALBUMINURIA IN A RANDOM SAMPLE IS DEFINED : MICROALBUMIN/CREATININE RATIO OF 30-299 ug/mg. . 77 MICROALBUMINURIA IN A RANDOM SAMPLE IS DEFINED : MICROALBUMIN/CREATININE RATIO OF 30-299 ug/mg. . 78 Anion gap measurement may be of limited value in the presence of any alkalosis, especially in a combined acid base disorder. . 79 A metabolite of Naproxen, O-desmethylnaproxen, has been shown to interfere with the Jendrassik-Blas method for measuring total bilirubin. Samples from patients who have taken Naproxen have shown spurious elevation in total bilirubin levels. 80 Because ethnic data is not always readily available, this report includes an eGFR for both -Americans and non- Americans. The National Kidney Disease Education Program (NKDEP) does not endorse the use of the MDRD equation for patients that are not between the ages of 18 and 70, are , have extremes of body size, muscle mass, or nutritional status, or are non- or non-. According to the National Kidney Foundation, irrespective of diagnosis, the stage of the disease is based on the level of kidney function: Stage Description GFR(mL/min/1.73 m(2)) 1 Kidney damage with normal or decreased GFR 90 2 Kidney damage with mild decrease in GFR 60-89 3 Moderate decrease in GFR 30-59 4 Severe decrease in GFR 15-29 5 Kidney failure <15 (or dialysis) 81 CHOLESTEROL INTERPRETATION: Desirable: Less than 200 MG/DL Borderline-High Risk: 200-239 MG/DL High-Risk: 240 MG/DL and over 82 HDL INTERPRETATION: Undesirable: High Risk: Less than 40 MG/DL Desirable: Low Risk: Greater than 60 MG/DL 83 LDL INTERPRETATION: Low Risk Optimal Level: LDL Less than 100 MG/DL Near or Above Optimal: LDL 100-129 MG/DL Borderline High Risk: LDL 130-159 MG/DL High Risk: LDL 160-189 MG/DL Very High Risk: LDL Greater than 189 MG/DL 84 Please note updated reference range, effective 12/10/09 85 * SERUM LEVELS OF PSA MEASURED USING THE EDGAR [employer] ACCESS HYBRITECH IMMUNOASSAY SHOULD NOT BE INTERPRETED ABSOLUTE EVIDENCE OF THE PRESENCE OR ABSENCE OF DISEASE. THE PSA VALUE SHOULD BE USED IN CONJUNCTION WITH OTHER PERTINENT CLINICAL DIAGNOSTIC PROCEDURES. 86 PATIENT MAY HAVE RESULTS PER DOCTOR'S AUTHORIZATION. Questions regarding this report should be directed to your doctor. 87 * SERUM LEVELS OF PSA MEASURED USING THE EDGAR LV ACCESS HYBRITECH IMMUNOASSAY SHOULD NOT BE INTERPRETED ABSOLUTE EVIDENCE OF THE PRESENCE OR ABSENCE OF DISEASE. THE PSA VALUE SHOULD BE USED IN CONJUNCTION WITH OTHER PERTINENT CLINICAL DIAGNOSTIC PROCEDURES. 88 CHOLESTEROL INTERPRETATION: Desirable: Less than 200 MG/DL Borderline-High Risk: 200-239 MG/DL High-Risk: 240 MG/DL and over 89 HDL INTERPRETATION: Undesirable: High Risk: Less than 40 MG/DL Desirable: Low Risk: Greater than 60 MG/DL 90 LDL INTERPRETATION: Low Risk Optimal Level: LDL Less than 100 MG/DL Near or Above Optimal: LDL 100-129 MG/DL Borderline High Risk: LDL 130-159 MG/DL High Risk: LDL 160-189 MG/DL Very High Risk: LDL Greater than 189 MG/DL 91 MICROALBUMINURIA IN A RANDOM SAMPLE IS DEFINED : MICROALBUMIN/CREATININE RATIO OF 30-299 ug/mg. . 92 Anion gap measurement may be of limited value in the presence of any alkalosis, especially in a combined acid base disorder. . 93 Note change in reference range as of 01/10/08. The change was based on recommendations from the [place] Diabetes Association. 94 Please note change in reference range effective 07 . 95 A metabolite of Naproxen, O-desmethylnaproxen, has been shown to interfere with the Jendrassik-Hubbardston method for measuring total bilirubin. Samples from patients who have taken Naproxen have shown spurious elevation in total bilirubin levels. 96 Because ethnic data is not always readily available, this report includes an eGFR for both -Americans and non- Americans. The National Kidney Disease Education Program (NKDEP) does not endorse the use of the MDRD equation for patients that are not between the ages of 18 and 70, are , have extremes of body size, muscle mass, or nutritional status, or are non- or non-. According to the National Kidney Foundation, irrespective of diagnosis, the stage of the disease is based on the level of kidney function: Stage Description GFR(mL/min/1.73 m(2)) 1 Kidney damage with normal or decreased GFR 90 2 Kidney damage with mild decrease in GFR 60-89 3 Moderate decrease in GFR 30-59 4 Severe decrease in GFR 15-29 5 Kidney failure <15 (or dialysis) 97 * SERUM LEVELS OF PSA MEASURED USING THE [employer] ACCESS HYBRITECH IMMUNOASSAY SHOULD NOT BE INTERPRETED ABSOLUTE EVIDENCE OF THE PRESENCE OR ABSENCE OF DISEASE. THE PSA VALUE SHOULD BE USED IN CONJUNCTION WITH OTHER PERTINENT CLINICAL DIAGNOSTIC PROCEDURES. 98 * SERUM LEVELS OF PSA MEASURED USING THE EDGAR LV ACCESS HYBRITECH IMMUNOASSAY SHOULD NOT BE INTERPRETED ABSOLUTE EVIDENCE OF THE PRESENCE OR ABSENCE OF DISEASE. THE PSA VALUE SHOULD BE USED IN CONJUNCTION WITH OTHER PERTINENT CLINICAL DIAGNOSTIC PROCEDURES. 99 ---- RUN DATE: 09/02/08 [facility] NMI LIVE PAGE 1 RUN TIME: 1450 Specimen Inquiry RUN USER: INTERFACE -- Name: STACY GILMAN Jo Ann#: [id number] Status: REG REF Re08/29/08 Age/Sex: 67/M Unit#: [id number] Location: [facility] : 39 -- Specimen: [id number] SOUT Spec Date: 08/29/[address]: Girish darden MD Spec Type: SURGICAL P Received: 09/01/08 Copies to: Rich Kim III, MD SPECIMEN 1) COLON POLYP AT 30 CM. 2) BIOPSY COLON POLYP AT 50 CM. HISTORY CLINICAL INFORMATION: History of polyps for follow-up GROSS DESCRIPTION 1) The specimen is received in formalin labelled Stacy Gilman, Colon Polyp at 30 cm., and consists of a segovia-yellow fragment of tissue measuring 0.5 x 0.3 x 0.3 cm. Submitted entirely, one cassette labelled 1. 2) The specimen is received in formalin labelled Stacy Gilman, Colon Polyp at 50 cm., and consists of two fragments of segovia-yellow tissue one miniscule and the other one measuring 0.5 x 0.4 x 0.3 cm. Submitted entirely, one cassette labelled 2. DIAGNOSIS 1) Colon, polyp at 30 cm., biopsy: A) Tubulovillous adenoma. B) No high grade dysplasia or malignancy. 2) Colon, polyp at 50 cm., biopsy: A) Tubular adenoma. B) No high grade dysplasia or malignancy. Signed Electronically by: ROCIO YAN 09/02/08 1449 -- -- DEPARTMENT OF PATHOLOGY, [address] [place] [address] [facility] Permit #[id number] Nikolay Alcazar M.D. Director Rocio Yan M.D. Hand Box Folder Dir fabián -- 100 * SERUM LEVELS OF PSA MEASURED USING THE EDGAR LV ACCESS HYBRITECH IMMUNOASSAY SHOULD NOT BE INTERPRETED ABSOLUTE EVIDENCE OF THE PRESENCE OR ABSENCE OF DISEASE. THE PSA VALUE SHOULD BE USED IN CONJUNCTION WITH OTHER PERTINENT CLINICAL DIAGNOSTIC PROCEDURES. 101 SDS 02/28/08 102 PLEASE NOTE NEW REFERENCE RANGE EFFECTIVE 07. 103 HOMAR VALUE=2.01 ( OF 04/27/07 Recommended INR for Patients on Oral Anticoagulants Prophylaxis 2.0 - 3.0 Treatment of thrombosis 2.0 - 3.0 Prevention of embolism 2.0 - 3.0 Prevention of embolism from prosthetic heart valves 2.5 - 3.5 104 Anion gap measurement may be of limited value in the presence of any alkalosis, especially in a combined acid base disorder. . 105 Note change in reference range as of 01/10/08. The change was based on recommendations from the [place] [employer]. 106 Please note change in reference range effective 07 . 107 FEW [STAPHYLOCOCCUS AUREUS] WITH FEW MIXED CUTANEOUS ANNA STAPHYLOCOCCUS AUREUS 108 ----- RUN DATE: 10/24/07 [facility] NMI LIVE PAGE 1 RUN TIME: 1511 Specimen Inquiry RUN USER: INTERFACE -- Name: STACY GILMAN#: [id number] Status: REG REF Re10/23/07 Age/Sex: 67/M Unit#: [id number] Location: [facility] : 39 -- Specimen: [id number] SOUT Spec Date: 10/23/[address]: Meet white MD Spec Type: SURGICAL P Received: 10/23/07-1533 Copies to: Rich Kim III, MD SPECIMEN 1) LEFT LOBE PROSTATE BIOPSY APEX (APEX 3) 2) LEFT LOBE PROSTATE BIOPSY BASE (BASE 3) 3) RIGHT LOBE PROSTATE BIOPSY APEX (APEX 3) 4) RIGHT LOBE PROSTATE BIOPSY BASE (BASE 3) HISTORY PRE-OP DIAGNOSIS: Moderately enlarged prostate, nodule left lobe, PSA 1.8 5 GROSS DESCRIPTION 1) The specimen is received in formalin labelled Stacy Gilman, Left Prostate Lobe [place], and consists of three, segovia, soft tissue cores measuring 2.1 cm., 1.9 cm., and 1.9 x 0.1 cm. Submitted entirely, one cassette. 2) The specimen is received in formalin labelled Stacy Gilman, Left Prostate Lobe Base, and consists of three, segovia, soft tissue cores measuring 1.6 cm., 1.6 cm., and 1.8 x 0.1 cm. Submitted entirely, one cassette. 3) The specimen is received in formalin labelled Stacy Gilman, Right Prostate Lobe [place], and consists of three, segovia, soft tissue cores measuring 2.0 cm., 1.9 cm., and 2.0 x 0.1 cm. Submitted entirely, one cassette. 4) The specimen is received in formalin labelled Stacy Gilman, Right Prostate Lobe Base, and consists of three, segovia, soft tissue cores measuring 2.5 cm., 1.5 cm., and 1.4 x 0.1 cm. Submitted entirely, one cassette. DIAGNOSIS 1) Prostate, left apex, core biopsies - A) Benign prostate tissue with partial atrophy and acute and chronic inflammation. B) No evidence of neoplasia identified. -- DEPARTMENT OF PATHOLOGY, [address] [place] [address] [facility] Permit #[id number] Nikolay Alcazar M.D. Director of Laboratories -- -- RUN DATE: 10/24/07 [facility] NMI LIVE PAGE 2 RUN TIME: 1511 Specimen Inquiry RUN USER: INTERFACE -- Name: STACY GILMAN#: [id number] Status: REG REF Re10/23/07 Age/Sex: 67/M Unit#: [id number] [facility] -- -- CONTINUED -- DIAGNOSIS (Continued) 2) Prostate, left base, core biopsies - A) Benign prostate tissue with partial atrophy and acute and chronic inflammation. B) No evidence of neoplasia identified. 3) Prostate, right apex, core biopsies - A) Focal high grade prostatic intraepithelial neoplasia. B) No invasive carcinoma identified. 4) Prostate, right base, core biopsies - A) Focal high grade prostatic intraepithelial neoplasia. B) No invasive carcinoma identified. Signed Electronically by: NIKOLAY ALCAZAR MD 10/24/07 1511 -- -- DEPARTMENT OF PATHOLOGY, [address] [place] [address] [facility] Permit #[id number] Nikolay Alcazar M.D. Director of Laboratories -- 109 PATIENT MAY HAVE RESULTS PER DOCTOR'S AUTHORIZATION. Questions regarding this report should be directed to your doctor. 110 Anion gap measurement may be of limited value in the presence of any alkalosis, especially in a combined acid base disorder. . 111 Classification: Desirable . 112 CALCULATED LDL APPROXIMATES THE VALUE OF A DIRECT LDL MEASUREMENT. Classification: Optimal Level . 113 * SERUM LEVELS OF PSA MEASURED USING THE [employer] ACCESS HYBRITECH IMMUNOASSAY SHOULD NOT BE INTERPRETED ABSOLUTE EVIDENCE OF THE PRESENCE OR ABSENCE OF DISEASE. THE PSA VALUE SHOULD BE USED IN CONJUNCTION WITH OTHER PERTINENT CLINICAL DIAGNOSTIC PROCEDURES. 114 THERAPEUTIC TARGET FOR THE TREATMENT OF DIABETES MELLITUS PATIENTS IS <7% HBA1C, AND IN SELECTIVE PATIENTS <6.0%. PLEASE REFER TO [place] [employer] DIABETIC CARE GUIDELINES FOR FURTHER INFORMATION. Procedures Date Code Description Status 11/21/2018 44877 EKG Tracing & Interpretation Completed 06/12/2017 [id number] Diabetic Retinal Eye Exam Completed 05/11/2017 [id number] Colonoscopy Completed 10/31/2013 [id number] Diabetic Retinal Eye Exam Completed 07/22/2012 54847 Holter Monitor Review (24 hr)dr review & interp only Completed 07/16/2012 24803 EKG Tracing & Interpretation Completed 04/27/2012 34409 Rad Exam; Both Knees, Standing Ap Completed 04/27/2012 35672 Rad Exam; Knee, Ap&L Completed 10/04/2011 [id number] Colonoscopy Completed 09/23/2010 76082 EKG, Interpretation Only Completed 11/06/2009 [id number] Mammogram Completed 08/03/2009 56682 Rad Exam; Both Knees, Standing Ap Completed 08/29/2008 [id number] Colonoscopy Completed 02/22/2008 99095 EKG Tracing & Interpretation Completed 02/22/2008 38831 EKG Tracing & Interpretation Completed 06/23/2003 [id number] Colonoscopy Completed Encounters Type Date Location Provider Dx Diagnosis Office Visit 04/09/2014 [facility] Rich E. 401.1 Hypertension Benign 9:00a Medicine - Jeremiah Kim M.D. 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 Collapse Office Visit 04/27/2012 10:30a Orthopedic Charlie Polanco, 844.9 Sprains & Services Of Kanwal [place]nor Strains Knee & Leg Unspec 716.96 Arthropathy Unspec Lower Leg Office Visit 03/01/2012 4:00p [facility] Internal Rich Kim, 723.1 Cervicalgia [facility] Jeremiah Oconnor V04.81 Need For Prophylactic Vaccination & Inoculation/Influenza V06.1 Dplyzrfxjk-Vuefbjf-Bbwmdroy Combined (DTaP) 401.1 Hypertension Benign 272.0 Hypercholesterolemia Pure Office Visit 01/05/2011 9:20a DO Not Use Song Writer Rich Fu 250.00 Diabetes Mellitus AT Jass Kim M.D. W/O Compl Type II Or Unspec Controlled 272.0 Hypercholesterolemia Pure 401.1 Hypertension Benign 602.9 Prostate Disorder Unspec Office Visit 08/12/2010 10:40a DO Not Use Song Writer Rich Fu 250.00 Diabetes Mellitus AT Jass Kim M.D. W/O Compl Type II Or Unspec Controlled 401.1 Hypertension Benign 272.0 Hypercholesterolemia Pure 602.9 Prostate Disorder Unspec Office Visit 08/10/2009 11:20a DO Not Use Song Writer Rich E. 250.00 Diabetes Mellitus AT Jass Kim M.D. W/O Compl Type II Or Unspec Controlled 401.1 Hypertension Benign 272.0 Hypercholesterolemia Pure 602.9 Prostate Disorder Unspec Office Visit 08/03/2009 Orthopedic Mikel, 716.96 Arthropathy 9:00a Services Of Dino Unspec Lower Leg [facility]wal R[facility]A.-O Office Visit 04/08/2008 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 Unspec Controlled 272.0 Hypercholesterolemia Pure 681.02 Onychia & Paronychia Finger V04.81 Need For Prophylactic Vaccination & Inoculation/Influenza Office Visit 12/17/2007 1:30p Connor Fu 719.46 Pain Joint Lower Assoc AT Anastasia Kim [facility] Office Visit 08/13/2007 9:00a Connor Fu 250.00 Diabetes Mellitus Assoc AT Anastasia Kim W/O Compl Type II [facility] Or Unspec Controlled 272.0 Hypercholesterolemia Pure 602.9 Prostate Disorder Unspec Plan of Treatment 11/21/2018 - Rich Kim M.D.R06.02 Shortness of cjsoebD13.9 Chest pain, unspecifiedNew Medication:Nitroglycerin 0.4 mg - 1 sl q5mins x3 as needed for chest pain
[2018-11-30] MEDS ORDERED: Metoprolol Tartrate IV* 1 MG/ML 5 ML VIAL IV ONE (17:17)
[2018-11-30 17:18] LABS: TSH (Thyroid Stimulating Horm) 1.53 mcIU/mL (0.34-5.60)
[2018-11-30 17:32] LABS: Activated Partial Thrombo Time 37.2 seconds (26.0-38.0)
[2018-11-30] MEDS ORDERED: Heparin VIAL(*) 5000 UNITS/ML VIAL (FIVE THOUSAND) IV ONE (17:45)
[2018-11-30] MEDS ORDERED: Heparin VIAL(*) 5000 UNITS/ML VIAL (FIVE THOUSAND) IV SCH (18:00)
[2018-11-30] MEDS ORDERED: Furosemide IV* 10 MG/ML 2 ML VIAL (20 MG) IV ONE (18:40)
[2018-11-30] MEDS ORDERED: Metoprolol Succinate XL TAB* 50 MG PO ONE (18:40)
[2018-11-30] MEDS ORDERED: Acetaminophen TAB* 325 MG PO PRN (18:45)
[2018-11-30] MEDS ORDERED: Dextrose 50% Syringe 50 ML* 25 GM/50 ML SYRINGE IV PUSH PRN (18:51)
[2018-11-30] MEDS: Enoxaparin(*) 100 MG/ML SYR SUBCUT SCH ×2 (19:00→20:53)
[2018-11-30 19:53] LABS: Troponin I 0.35 ng/mL (<0.04)
--- NOTE | 2018-11-30 20:10 | CONS ---
CC: Dr. Rich Kim CARDIOLOGY CONSULTATION: DATE OF CONSULT: 11/30/18 REFERRING PHYSICIAN: Dr. Jazmyn Antony and Rafia Bowden NP REASON FOR CARDIOLOGY CONSULTATION: Shortness of breath with an elevated troponin. HISTORY OF PRESENT ILLNESS: Mr. Mercer is a pleasant, active 78-year-old gentleman who has noted progressive shortness of breath for the past 4 to 5 months, which has been getting worse to where he cannot walk more than 20 to 30 yards. He denies chest pain or syncope. He also denies orthopnea or edema. He called his primary care physician today to ask if it was okay to wait for a cardiology consult which had been scheduled for mid December and they had recommended he come to the emergency room for evaluation. The patient did not have any acute symptoms today. Here in the emergency room, the patient was found to have an elevated troponin of 0.26 and so he is being admitted. He also has a BNP of 768. The patient had a transthoracic echocardiogram completed on 11/23/18, which showed moderately depressed left ventricular ejection fraction of 40% to 45% with impaired diastolic relaxation, severe aortic stenosis, mild mitral regurgitation, mild tricuspid regurgitation. PAST MEDICAL HISTORY: Other past medical history includes diabetes, hyperlipidemia, allergies, renal calculi. He apparently had a pubic symphysis traumatic injury within the past year or 2 while water skiing. OUTPATIENT MEDICATIONS: 1. Altace 5 mg once a day. 2. Zocor 40 mg once a day. 3. Aspirin 81 mg once a day. 4. Finasteride 5 mg once a day. 5. Lantus 15 units as prescribed. 6. Metformin 1 g p.o. b.i.d. 7. Bydureon 2 mg once a week. 8. Fluticasone p.r.n. 9. Invokana 300 mg for diabetes. 10. Triamcinolone. ALLERGIES TO MEDICATIONS: None. He denies shrimp, seafood, or dye allergy. FAMILY HISTORY: His father had a weak heart and at the age of 84. Mother at the age of 94. No family history of stroke, cancer, nor diabetes. SOCIAL HISTORY: He has been for 54 years and of note his accompanies him during the patient's cardiac evaluation by myself in the emergency room. The patient does not smoke cigarettes. He very occasionally drinks alcohol. He does not use illicit drugs. 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 He is not doing currently exercise as he had in the past with running and rowing since his pubic symphysis traumatic injury while water skiing within the past several years. REVIEW OF SYSTEMS: He denies personal history of stroke, cancer, vomiting of blood, coughing of blood, bright red blood per rectum, bleeding stomach ulcers. He has a history of renal calculi, last one requiring treatment was 4 years ago. He denies chololithiasis. Denies asthma, emphysema, pneumonia, tuberculosis, sleep apnea, home oxygen use. He has diabetes. He is not sure if he has hypertension. He denies prior MT, congestive heart failure, cardiac surgery. He has noticed some heart palpitations his whole life for 2 to 3 minutes, but none for the past 20 to 25 years. He denies psychiatric illnesses , lupus, psoriasis, seizures, Parkinson's disease, myasthenia gravis, thyroid disorders, liver failure, kidney disorders, claudication symptoms, pulmonary emboli, deep venous thrombosis, peripheral arterial disease, peripheral edema, heartburn symptoms. All other review of systems are negative times 14 except as per this documentation. PHYSICAL EXAM: Height 5 feet 10-1/2 inches, weight 191 pounds, temperature 97.1 degrees Fahrenheit, pulse 92, blood pressure 115/84 to 136/90, O2 saturation 95%. On general exam, he is a pleasant gentleman, in no acute distress. HEENT shows the cranium is normocephalic and atraumatic. He has moist mucosal membranes. Neck veins are not distended. There are no carotid bruits visible. Skin warm and perfused. Affect is appropriate. He appears oriented. No significant kyphoscoliosis on recumbent back exam. Lung Exam: Few rales at the bases. No wheezes, no rhonchi. Cardiac Exam: S1, S2. Regular rate. 3/6 systolic ejection murmur heard with depressed aortic component of second heart sound. There is no rub, no gallop. PMI is nondisplaced. Abdomen: Soft and nondistended, appears benign. Extremities: Without significant edema. Pulses appear grossly intact. DIAGNOSTIC STUDIES/LAB DATA: Transthoracic echocardiogram completed on 07/05/ 19 shows normal left ventricular size with moderately depressed left ventricular ejection fraction of 40% to 45% with mild global hypokinesis, severe aortic stenosis, mild mitral regurgitation, mild tricuspid regurgitation. Sodium 139, potassium 4.5, chloride 106, bicarbonate 27, BUN 21, creatinine 1.25 and his usual creatinine is normal at 0.96 on 05/31/18. Troponin 0.26. BNP 768. CRP 2.78. D-dimer 295. White blood cell count 7.9, hematocrit 45, platelet count 195. A 12-lead EKG reviewed, 11/30/18, at 1605 demonstrates normal sinus rhythm with first degree AV block, consider old anteroseptal infarct with nonspecific ST-T wave changes. IMPRESSION: Mr. Mercer is a pleasant 78-year-old gentleman with a history of diabetes and hyperlipidemia with several months of exertional shortness of breath, recently diagnosed with severe aortic stenosis. While he does have elevated troponin today, it seems less likely that it is due to acute coronary syndrome, but difficult to completely exclude that as opposed to more likely myocardial strain from his severe aortic stenosis with moderate cardiomyopathy and volume overload. I have discussed this in detail with the patient and making the following recommendations with which he is in agreement. RECOMMENDATIONS: 1. Continue aspirin. We will start him on a beta-kaylee. Continue statin and YURI inhibitor. 2. Cycle troponin with Lovenox until peak. 3. Will give him a dose of Lasix 20 mg IV x1 and follow electrolytes closely as he does have some evidence of volume overload. 4. Plan for cardiac catheterization on Monday to rule out severe CAD given elevated troponin followed by TAVR evaluation in [facility] with which the patient is in agreement. 5. The patient will follow up with myself following discharge. 6. Regarding increased D-dimer, which is nonspecific, recommend ruling out pulmonary embolus as felt appropriate by the hospitalist medicine service. 7. Other management as per the hospitalist medicine service and I have discussed the case with Ms. Bowden. Dear Ms. Bowden and Dr. Barone, many thanks for this kind cardiac consultation opportunity. Please do not hesitate to contact me if you have any questions or concerns regarding the patient's cardiovascular consultative care. [id number]/[facility] #: [id number] MTDCleve
[2018-11-30] MEDS: Atorvastatin* 20 MG TAB PO SCH (20:54)
[2018-11-30] MEDS: Insulin GLARGINE(*) 1 UNITS UNIT SUBCUT SCH (21:05)
[2018-11-30 21:07] LABS: Urine Appearance Clear; Urine Bilirubin Negative (Negative); Urine Blood Negative (Negative); Urine Color Straw; Urine Glucose 3+(>=500 mg/dL) (Negative); Urine Ketones Negative (Negative); Urine Nitrite Negative (Negative); Urine Protein Negative (Negative); Urine Specific Gravity 1.008 (1.010-1.030); Urine Urobilinogen Negative (Negative)
[2018-11-30 23:11] LABS: Troponin I 0.28 ng/mL (<0.04)
--- NOTE | 2018-12-01 01:04 | HP ---
CC: Dr. Kim; Dr. Olguin; Dr. Nicole * HISTORY AND PHYSICAL: DATE OF ADMISSION: 11/30/18 PROVIDER: Rafia Bowden NP. PRIMARY CARE PROVIDER: Dr. Kim. ATTENDING PHYSICIAN WHILE IN THE HOSPITAL: Dr. Jarocho Raman * (dictated by Rafia Bowden NP). CHIEF COMPLAINT: Shortness of breath. HISTORY OF PRESENT ILLNESS: Mr. Mercer is a 78-year-old male with a past medical history significant for type 2 diabetes, hypertension, hyperlipidemia, history of kidney stones, who presented to the emergency room with progressively worsening shortness of breath. The patient reports that he saw Dr. Kim approximately 9 days ago due to his progressively worsening shortness of breath. He was scheduled for outpatient transthoracic echocardiogram and set up for a stress test in the future. The patient reports that he had his echo on 11/23/18 and results are currently pending at this time. He reports that he became more short of breath this week. He reports that he becomes very dyspneic walking 20 to 30 yards and he has to stop to recover due to his shortness of breath. He denies any chest pain. He denies any fever, chills, unintended weight loss, chest pain. Denies any edema, cough , hemoptysis. He does report the shortness of breath is worse with exertion. No nausea, vomiting, diarrhea, abdominal pain, hematuria, dysuria, focal weakness, or sensory loss. He denies any visual complaints, dysphagia, arthralgias, myalgias, rashes, lesions, or open sores. Denies any psychosis or anxiety. Denies any blood in the stool or vomit. Due to his progressively worsening shortness of breath, he presented to the emergency room. While in the emergency room, the patient had a routine lab work drawn. He was found to have an elevated troponin, initially at 0.26. He was seen by Dr. Olguin from Cardiology. Echo report was reviewed with the patient which showed severe aortic stenosis with an EF of 40% to 45%. Due to these findings, we were asked to see and evaluate the patient for admission. PAST MEDICAL HISTORY: Significant for: 1. Kidney stones 45 years ago. 2. Type 2 diabetes, on Lantus. 3. Hypertension. 4. Hyperlipidemia. PAST SURGICAL HISTORY: 1. Appendectomy. 2. Left meniscus repair. 3. Tonsillectomy. HOME MEDICATIONS: Include: 1. Metformin 1000 mg p.o. b.i.d. 2. Altace/ramipril 5 mg p.o. daily. 3. Simvastatin 40 mg p.o. daily. 4. Aspirin 81 mg p.o. daily. 5. Finasteride 5 mg p.o. daily. 6. Lantus 15 units subcu daily. 7. Bydureon once weekly. 8. Fluticasone as needed. 9. Invokana 300 mg p.o. daily. ALLERGIES: No known drug allergies. FAMILY HISTORY: Grandfather at the age of 41 of heart disease. Unsure about diabetes. No reported history of cancer. SOCIAL HISTORY: The patient denies any tobacco or illicit drug use. He reports occasional alcohol use. He is . Surrogate decision maker in the event he is unable to make his own decisions is his . He is a full code. REVIEW OF SYSTEMS: A 14-point review of systems was completed. All pertinent positives are mentioned in the HPI. PHYSICAL EXAMINATION GENERAL: Mr. Mercer is alert and oriented, resting on the stretcher in the emergency room. He is in no acute distress. VITAL SIGNS: Are as follows: Blood pressure 132/80, heart rate 90, respirations 16, O2 saturation 99%, temperature was 98.2. HEENT: Head is atraumatic, normocephalic. Eyes: EOMs are intact. Sclerae anicteric and not pale. Oral mucosa appeared to be moist. NECK: Supple. LUNGS: With crackles in the bases bilaterally. CARDIAC: S1, S2. Regular rate and rhythm. There are no rubs or gallops. He does have a murmur. ABDOMEN: Soft and nontender. Bowel sounds are present x4. NEUROLOGIC: He is awake, alert, and oriented x3. Speech is clear. Thought process is intact. There are no gross focal deficits. MUSCULOSKELETAL: He is able to move all 4 extremities with 5/5 strength. SKIN: Intact. LABORATORY DATA AND DIAGNOSTIC STUDIES: WBC 7.9, RBC 4.90, hemoglobin 15.5, hematocrit of 45, platelet count 195. INR: aPTT was 37.2, D-dimer was 295. Sodium 139, potassium 4.5, chloride 106, carbon dioxide was 27, anion gap of 6, BUN was 21, creatinine 1.25. Glucose was 148, lactic acid 1.5, calcium 9.6, magnesium 2.0. T-bili was 0.70, AST was 15, ALT was 17, alkaline phosphatase was 72. Total CK was 86, CK-MB was 5.6. Troponin was 0.26, repeat was 0.35. C -reactive protein high sensitivity was 2.78. BNP was 768. TSH was 1.53. Urine was within normal limits with the exception of specific gravity of 1.008 and glucose of 3+. The patient did have an electrocardiogram which showed sinus rhythm at a rate of 92, prolonged [place] with ST elevation in lead 3, ST depression in V3 and V4. His chest x-ray, radiologist's impression: Cardiomegaly with interstitial edema consistent with vascular congestion. ASSESSMENT AND PLAN: Mr. Mercer is a 78-year-old male with past medical history significant for hypertension, type 2 diabetes, hyperlipidemia, history of kidney stones, who presented to the emergency room with progressive shortness of breath, found to have severe aortic stenosis with an elevated troponin. He will be admitted inpatient for: 1. Shortness of breath. I suspect his shortness of breath is related to his severe aortic stenosis with underlying volume overload with an EF of 40% to 45% from a recent echo on 11/23/18 as an outpatient. The patient will receive Lasix 20 mg IV x1. He will have Lovenox 1 mg per kilo at 85 mg q.12 hours and Toprol XL 50 mg p.o. daily, start this evening. The patient was seen in consultation by Dr. Olguin from Cardiology. He will be scheduled for a cardiac catheterization on Monday. 2. Elevated troponin. The patient will be placed on Lovenox 85 mg q.12 hours. He will continue on Toprol, ramipril, aspirin, and simvastatin. I will place him on telemetry. We will monitor for any arrhythmias. We will continue to monitor his potassium and magnesium. 3. Elevated D-dimer. The patient does have an elevated D-dimer. The patient does have progressively worsening shortness of breath. I will order a V/Q scan as the patient does have mildly elevated creatinine level and will need subsequent IV contrast for his cardiac catheterization on Monday. We will continue to trend his troponins and watch him on telemetry. 4. Elevated creatinine. I will repeat a BMP in the a.m. I will avoid nephrotoxic medications. 5. Diabetes. We will do fingersticks a.c. and h.s. I will place him on lispro sliding scale with Lantus 15 units daily. I will order hemoglobin A1c. 6. FEN: He can have a consistent carb diet. 7. Code status: He is a full code. 8. DVT prophylaxis: He will be on Lovenox. 9. Disposition: The patient will be placed inpatient on . TIME SPENT: Time spent on this admission was approximately 60 minutes, greater than half that time was spent at the bedside reviewing the events leading thus far to his hospitalization, performing physical exam, and reviewing my plan of care. I have discussed this with my attending Dr. Jarocho Raman; he is in agreement with my plan. RAFIA BOWDEN, NOEMI [id number]/[facility] #: [id number] BROCK
[2018-12-01 01:56] LABS: Troponin I 0.34 ng/mL (<0.04)
[2018-12-01] MEDS ORDERED: Melatonin 3 MG TAB PO ONE (02:25)
[2018-12-01 06:12] LABS: ABS Basophils 0.1 10^3/ul (0-0.2); ABS Eosinophils 0.1 10^3/ul (0-0.6); ABS Lymphocytes 1.5 10^3/ul (1.0-4.8); ABS Monocytes 0.8 10^3/ul (0-0.8); ABS Neutrophils 8.3 10^3/ul (1.5-7.7); Eosinophil % 0.6 %; Hematocrit 45 % (42-52); Hemoglobin 15.6 g/dL (14.0-18.0); Lymphocyte % 14.1 %; Mean Corpuscular HGB Conc 35 g/dL (31-36); Mean Corpuscular Hemoglobin 32 pg (27-31); Mean Corpuscular Volume 92 fL (80-94); Platelet Count 185 10^3/uL (150-450); Red Blood Count 4.84 10^6 /uL (4.18-5.48); Red Cell Distribution Width 14 % (10-15); White Blood Count 10.7 10^3/uL (3.5-10.8)
[2018-12-01 06:20] LABS: INR 1.04 (0.82-1.09)
[2018-12-01 06:31] LABS: Anion Gap 9 mmol/L (2-11); BUN/Creatinine Ratio 23.7 (8-20); Blood Urea Nitrogen 22 mg/dL (6-24); CO2 Carbon Dioxide 24 mmol/L (22-32); Calcium 9.4 mg/dL (8.6-10.3); Chloride 106 mmol/L (101-111); Cholesterol 125 mg/dL; EGFR African American 94.8 (>60); EGFR Non-African American 78.4 (>60); Glucose 132 mg/dL (70-100); HDL Cholesterol 42.9 mg/dL; LDL Cholesterol 63 mg/dL; Sodium 139 mmol/L (135-145); Triglycerides 98 mg/dL
[2018-12-01 06:40] LABS: Troponin I 0.41 ng/mL (<0.04)
[2018-12-01] MEDS: Insulin LISPRO* 1 UNITS UNIT SUBCUT SCH ×3 (08:07→17:00)
[2018-12-01] MEDS: Enoxaparin(*) 100 MG/ML SYR SUBCUT SCH ×2 (08:34→21:05)
[2018-12-01] MEDS: Finasteride TAB* 5 MG PO SCH (08:34)
[2018-12-01] MEDS: Aspirin 81 mg CHEW TAB* 81 MG TAB.CHEW PO SCH (08:34)
--- NOTE | 2018-12-01 10:57 | PN ---
Subjective Date of Service: 12/01/18 Interval History: some SALAS/SOB with walking halls but took it easy did have some PND in recent days. no chest pain repeat EKG stable troponin peaked Objective Active Medications: Acetaminophen (Tylenol Tab*) 650 mg PO Q4H PRN PRN Reason: FEVER/PAIN Aspirin (Aspirin 81 Mg Chew Tab*) 81 mg PO QAM [facility] Last Admin: 12/01/18 08:34 Dose: 81 mg Atorvastatin Calcium (Lipitor*) 20 mg PO QPM [facility] Last Admin: 11/30/18 20:54 Dose: 20 mg Dextrose (D50w Syringe 50 Ml*) 12.5 gm IV PUSH .FOR FS < 60 - SS PRN PRN Reason: FS < 60 Enoxaparin Sodium (Lovenox(*)) 85 mg SUBCUT Q12HR [facility] Last Admin: 12/01/18 08:34 Dose: 85 mg Finasteride (Proscar Tab*) 5 mg PO QAM [facility] Last Admin: 12/01/18 08:34 Dose: 5 mg Insulin Glargine (Lantus(*)) 15 units SUBCUT BEDTIME [facility] Last Admin: 11/30/18 21:05 Dose: 15 unit Insulin Human Lispro (Humalog*) 0 units SUBCUT AC [facility]; Protocol Last Admin: 12/01/18 08:07 Dose: Not Given Metoprolol Succinate (Toprol Xl Tab*) 50 mg PO DAILY [facility] Ramipril (Altace Cap*) 5 mg PO QPM [facility] Vital Signs - 8 hr 12/01/18 12/01/18 12/01/18 04:53 07:45 08:00 Temperature 97.3 F 97.6 F Pulse Rate 91 87 Respiratory 18 20 20 Rate Blood Pressure 105/72 110/76 (mmHg) O2 Sat by Pulse 94 94 Oximetry Oxygen Devices in Use Now: None Appearance: NAD Eyes: No Scleral Icterus Ears/Nose/Mouth/Throat: NL Teeth, Lips, Gums Respiratory: Symmetrical Chest Expansion and Respiratory Effort, Clear to Auscultation Cardiovascular: NL Sounds; No Murmurs; No JVD, - - NSR, no edema. Abdominal: NL Sounds; No Tenderness; No Distention, No Hepatosplenomegaly Extremities: No Edema Skin: No Rash or Ulcers Neurological: Alert and Oriented x 3, NL Sensation Nutrition: Taking PO's Result Diagrams: 12/01/18 05:42 12/01/18 05:42 Additional Lab and Data: Laboratory Results - last 24 hr 11/30/18 11/30/18 12/01/18 21:04 22:37 01:15 WBC RBC Hgb Hct MCV MCH MCHC RDW Plt Count MPV Neut % (Auto) Lymph % (Auto) [place] % (Auto) Eos % (Auto) Baso % (Auto) Absolute Neuts (auto) Absolute Lymphs (auto) Absolute Monos (auto) Absolute Eos (auto) Absolute Basos (auto) Absolute Nucleated RBC Nucleated RBC % INR (Anticoag Therapy) Sodium Potassium Chloride Carbon Dioxide Anion Gap BUN Creatinine Est GFR ( Amer) Est GFR (Non-Af Amer) BUN/Creatinine Ratio Glucose POC Glucose (mg/dL) 180 H Calcium Troponin I 0.28 H* 0.34 H* Triglycerides Cholesterol LDL Cholesterol HDL Cholesterol 12/01/18 12/01/18 12/01/18 05:42 05:42 05:42 WBC 10.7 RBC 4.84 Hgb 15.6 Hct 45 MCV 92 MCH 32 H MCHC 35 RDW 14 Plt Count 185 MPV 8.0 Neut % (Auto) 77.5 Lymph % (Auto) 14.1 [place] % (Auto) 7.1 Eos % (Auto) 0.6 Baso % (Auto) 0.7 Absolute Neuts (auto) 8.3 H Absolute Lymphs (auto) 1.5 Absolute Monos (auto) 0.8 Absolute Eos (auto) 0.1 Absolute Basos (auto) 0.1 Absolute Nucleated RBC 0.0 Nucleated RBC % 0.0 INR (Anticoag Therapy) 1.04 Sodium 139 Potassium 4.0 Chloride 106 Carbon Dioxide 24 Anion Gap 9 BUN 22 Creatinine 0.93 Est GFR ( Amer) 94.8 Est GFR (Non-Af Amer) 78.4 BUN/Creatinine Ratio 23.7 H Glucose 132 H POC Glucose (mg/dL) Calcium 9.4 Troponin I 0.41 H* Triglycerides 98 Cholesterol 125 LDL Cholesterol 63 HDL Cholesterol 42.9 12/01/18 12/01/18 12/01/18 07:42 11:14 12:13 WBC RBC Hgb Hct MCV MCH MCHC RDW Plt Count MPV Neut % (Auto) Lymph % (Auto) [place] % (Auto) Eos % (Auto) Baso % (Auto) Absolute Neuts (auto) Absolute Lymphs (auto) Absolute Monos (auto) Absolute Eos (auto) Absolute Basos (auto) Absolute Nucleated RBC Nucleated RBC % INR (Anticoag Therapy) Sodium Potassium Chloride Carbon Dioxide Anion Gap BUN Creatinine Est GFR ( Amer) Est GFR (Non-Af Amer) BUN/Creatinine Ratio Glucose POC Glucose (mg/dL) 113 H 178 H Calcium Troponin I 0.31 H* Triglycerides Cholesterol LDL Cholesterol HDL Cholesterol 12/01/18 12/01/18 16:11 20:43 WBC RBC Hgb Hct MCV MCH MCHC RDW Plt Count MPV Neut % (Auto) Lymph % (Auto) [place] % (Auto) Eos % (Auto) Baso % (Auto) Absolute Neuts (auto) Absolute Lymphs (auto) Absolute Monos (auto) Absolute Eos (auto) Absolute Basos (auto) Absolute Nucleated RBC Nucleated RBC % INR (Anticoag Therapy) Sodium Potassium Chloride Carbon Dioxide Anion Gap BUN Creatinine Est GFR ( Amer) Est GFR (Non-Af Amer) BUN/Creatinine Ratio Glucose POC Glucose (mg/dL) 142 H 78 Calcium Troponin I Triglycerides Cholesterol LDL Cholesterol HDL Cholesterol Assess/Plan/Problems-Billing Assessment: 78 yo male PMH IDDM, HTN, HLD p/w progressive SALAS and outpatient 11/23 ECHO with severe aortic stenosis. #elevated troponin - peaked. never chest pain. EKG with Qs inferiorly and ST depressions v4-v6, I, aVL. - planned [facility] 12/03 - BB, aspirin - lovenox therapeutic - telemetry #HFpEF - EF 40-45% - metoprolol succinate 50, ramipirl 5mg #severe Aortic Stenosis - will need TAVR most likely vs open repair if needs a CABG. - [facility] referral #IDDM - POC qac hs, SSI - lantus 15U qhs #HLD - lipitor 20mg - LDL 63, HDL 43 DVT PPx: lovenox Diet: heart healthy, carb consistent. CODE:FULL
[2018-12-01 12:55] LABS: Troponin I 0.31 ng/mL (<0.04)
[2018-12-01] MEDS: Atorvastatin* 20 MG TAB PO SCH (17:00)
[2018-12-01] MEDS: Ramipril CAP* 5 MG PO SCH (17:00)
[2018-12-01] MEDS: Metoprolol Succinate XL TAB* 50 MG PO SCH (17:00)
[2018-12-01] MEDS: Insulin GLARGINE(*) 1 UNITS UNIT SUBCUT SCH (21:05)
[2018-12-02] MEDS: Insulin LISPRO* 1 UNITS UNIT SUBCUT SCH ×3 (08:01→17:29)
[2018-12-02] MEDS: Aspirin 81 mg CHEW TAB* 81 MG TAB.CHEW PO SCH (08:10)
[2018-12-02] MEDS: Metoprolol Succinate XL TAB* 50 MG PO SCH (08:10)
[2018-12-02] MEDS: Finasteride TAB* 5 MG PO SCH (08:10)
[2018-12-02] MEDS: Enoxaparin(*) 100 MG/ML SYR SUBCUT SCH ×2 (08:11→20:46)
[2018-12-02] MEDS ORDERED: Furosemide TAB* 20 MG PO ONE (16:19)
--- NOTE | 2018-12-02 16:20 | PN ---
Subjective Interval History: walked unit, slowly some orthopnea just now, asked to be put on 1L O2 and feeling better no chest pain or other complaints other than restless sleep. Objective Active Medications: Acetaminophen (Tylenol Tab*) 650 mg PO Q4H PRN PRN Reason: FEVER/PAIN Aspirin (Aspirin 81 Mg Chew Tab*) 81 mg PO QAM [facility] Last Admin: 12/02/18 08:10 Dose: 81 mg Atorvastatin Calcium (Lipitor*) 20 mg PO QPM [facility] Last Admin: 12/01/18 17:00 Dose: 20 mg Dextrose (D50w Syringe 50 Ml*) 12.5 gm IV PUSH .FOR FS < 60 - SS PRN PRN Reason: FS < 60 Enoxaparin Sodium (Lovenox(*)) 85 mg SUBCUT Q12HR [facility] Stop: 12/02/18 23:59 Last Admin: 12/02/18 08:11 Dose: 85 mg Finasteride (Proscar Tab*) 5 mg PO QAM [facility] Last Admin: 12/02/18 08:10 Dose: 5 mg Furosemide (Lasix Tab*) 20 mg PO ONCE ONE Stop: 12/02/18 16:20 Sodium Chloride (Ns 0.9% 1000 Ml) 1,000 mls @ 75 mls/hr IV .per rate [facility] Insulin Human Lispro (Humalog*) 0 units SUBCUT [facility]; Protocol Last Admin: 12/02/18 12:28 Dose: 1 unit Metoprolol Succinate (Toprol Xl Tab*) 50 mg PO DAILY [facility] Last Admin: 12/02/18 08:10 Dose: 50 mg Ramipril (Altace Cap*) 5 mg PO QPM [facility] Last Admin: 12/01/18 17:00 Dose: 5 mg Vital Signs - 8 hr 12/02/18 12/02/18 11:29 15:35 Temperature 97.3 F 97.6 F Pulse Rate 81 93 Respiratory 16 16 Rate Blood Pressure 103/63 100/60 (mmHg) O2 Sat by Pulse 98 93 Oximetry Oxygen Devices in Use Now: None Appearance: NAD, lying in bed Respiratory: - - slight rales at bilateral base. Cardiovascular: - - 2/6 creschendo-decreshendo murmur across precordium Abdominal: NL Sounds; No Tenderness; No Distention, No Hepatosplenomegaly Extremities: - - trace edema Skin: No Rash or Ulcers Neurological: Alert and Oriented x 3, NL Muscle Strength and Tone Nutrition: Taking PO's Result Diagrams: 12/01/18 05:42 12/01/18 05:42 Additional Lab and Data: Laboratory Results - last 24 hr 12/01/18 12/02/18 12/02/18 20:43 07:20 11:55 POC Glucose (mg/dL) 78 107 H 131 H 12/02/18 16:40 POC Glucose (mg/dL) 221 H Assess/Plan/Problems-Billing Assessment: 78 yo male PMH IDDM, HTN, HLD p/w progressive SALAS and outpatient 11/23 ECHO with severe aortic stenosis. #elevated troponin - peaked. never chest pain. EKG with Qs inferiorly and ST depressions v4-v6, I, aVL. - planned [facility] 12/03 - BB, aspirin - lovenox therapeutic - telemetry #HFpEF - EF 40-45% - metoprolol succinate 50, ramipril 5mg - will give another 20mg po lasix po today as orthopnic #severe Aortic Stenosis - will need TAVR most likely vs open repair if needs a CABG. - [facility] referral (and it sounds like Dr. Kurtz will be visiting [place] over the next two days and [place] [facility] [place] #IDDM - POC qac hs, SSI - lantus 15U qhs but cut to 8U tonight #HLD - lipitor 20mg - LDL 63, HDL 43 DVT PPx: lovenox Diet: heart healthy, carb consistent. npo midnight. CODE:FULL Status and Disposition: medicine inpatient, getting [facility] 12/03, if no stent needed then likely d/c later that day.
[2018-12-02] MEDS: Atorvastatin* 20 MG TAB PO SCH (17:29)
[2018-12-02] MEDS: Ramipril CAP* 5 MG PO SCH (17:29)
[2018-12-02] MEDS ORDERED: Insulin GLARGINE(*) 1 UNITS UNIT SUBCUT SCH (21:00)
[2018-12-03] MEDS ORDERED: Furosemide IV* 10 MG/ML 2 ML VIAL (20 MG) IV ONE (03:05)
--- NOTE | 2018-12-03 03:12 | PN ---
Hospitalist Progress Note Date of Service: 12/03/18 Called by RN for SOB. History of HFpEF and . Noted to have SOB, SALAS, and PND on prior progress notes. Crackles at bases. Trace LE edema. CXR with interstitial edema. Appears pt did receive furosemide 20mg PO one time, last evening. Will give furosemide 20mg IV and order morning labs for K/Mg repletion.
[2018-12-03] MEDS: Insulin LISPRO* 1 UNITS UNIT SUBCUT SCH ×2 (07:45→12:23)
[2018-12-03] MEDS: Metoprolol Succinate XL TAB* 50 MG PO SCH (08:00)
[2018-12-03] MEDS: Aspirin 81 mg CHEW TAB* 81 MG TAB.CHEW PO SCH (08:00)
[2018-12-03] MEDS ORDERED: NS 0.9% 1000 ML** 1,000 ML IV SCH (08:00)
[2018-12-03 08:40] LABS: BUN/Creatinine Ratio 18.8 (8-20); Calcium 8.9 mg/dL (8.6-10.3); EGFR African American 76.5 (>60); EGFR Non-African American 63.2 (>60); Potassium 3.7 mmol/L (3.5-5.0)
[2018-12-03] MEDS ORDERED: Lidocaine 1% INJ* 10 MG/ML 30 ML SDV ONE (09:06)
[2018-12-03] MEDS ORDERED: Iohexol 350 (CONTRAST) 200 ML MDV IV ONE (09:06)
[2018-12-03] MEDS ORDERED: Heparin 2 UNITS/ML IVPREMIX* 2,000 UNIT/1,000 ML BAG IV ONE (09:06)
[2018-12-03] MEDS ORDERED: VERAPAMIL 2.5 MG/ML 2 ML VIAL ** 5 mg/2 ml ONE (09:35)
[2018-12-03] MEDS ORDERED: Midazolam* 1 MG/ML 5 ML VIAL (5 MG) ONE (09:35)
[2018-12-03] MEDS ORDERED: nitroGLYCERIN DRIP* 25,000 MCG/250 ML BTL ONE (09:35)
[2018-12-03] MEDS ORDERED: Heparin(*) 1000 UNIT/ML 10 ML VIAL CATH LAB IV ONE (09:35)
[2018-12-03] MEDS ORDERED: fentaNYL* 50 MCG/ML 2 ML VIAL (100 MCG VIAL) ONE (09:35)
--- NOTE | 2018-12-03 11:42 | CATH ---
"*[facility]* [place] [address] Main: [phone] [email or web address] Cardiac Catheterization Patient: Ignacio Mercer : 1940 Study Date: 12/03/2018 Age: 78 Gender: M HR: Height: 70 in /177.8 cm BSA: 2.07 m^2 Weight: 188.1 lb /85.5 kg BMI: 27 kg/m^2 Marketing Copywriter: Rolando Galaviz MD Ordering Physician: Stacey Dcikson MD Referring Physician: Stacey Dickson MD, Sodums Marcis T, --- - Right coronary angiography. - Left coronary angiography. Summary: 1. Left main: Distal vessel lesion: There is an 80% stenosis. There is heavy calcification noted. There is heavy calcification noted. 2. LAD: Proximal vessel lesion: There is an 80% stenosis. Mid-vessel lesion: There is a 75% stenosis. There is heavy calicification throughout the left anterior descending coronary. 3. Left circumflex: Distal vessel lesion: There is a 95% stenosis. Distal vessel lesion: There is a 100% stenosis. Proximal vessel lesion: There is an 80% stenosis. Heavy calcification is seen throughout the circumflex system. 4. 2nd obtuse marginal: Proximal vessel lesion: There is an 85% stenosis. 5. Right coronary: Proximal vessel lesion: There is a 75% stenosis. Mid-vessel lesion: There is a 100% stenosis. There are left to right collaterals noted filling the distal right coronary artery. 6. Severe triple vessel disease with extensive calcification. Recommendations: Patient with severe triple vessel disease with reported significant aortic stenosis. He will be transferred to Dr. Bhupendra Kurtz, cardiothoracic surgey at [facility] per Dr. Isaiah Olguin's recommendation for surgical opinion. Indications: Aortic stenosis, with congestive heart failure. History: Dyspnea. Congestive heart failure. Aortic valve disease. Aortic stenosis. Functional status: CCS class III (marked limitation of ordinary activity). Risk factors: Hypertension. Diabetes mellitus; on therapy with insulin. Dyslipidemia. Family history is significant for coronary artery disease. Medications: The patient received no antianginal therapy in the last two weeks. Labs, prior tests, procedures, and surgery: Blood tests: Troponin I (pre-procedure) of 0.31 ng/ml. International normalized ratio (INR) of 1.04. Partial thromboplastin time (PTT) of 37.2 sec. Serum potassium (K) of 3.7 mEq/l. Serum sodium (Na) of 140 mEq/l. Serum creatinine (current admission) of 1.12 mg/dl. Blood urea nitrogen of 21 mg/dl. Glucose of 161 mg/dl. Platelet count of 185 th/ul. White blood cell count (WBC) of 0.01 th/ul. Red blood cell count (RBC) of 4840 th/ul. Hematocrit of 45 %. Hemoglobin (pre-procedure) of 15.6 g/dl. Study data: Location: Catheterization laboratory. Consent: The risks, benefits, and alternatives to the procedure were explained to the patient and/or their healthcare traffic workforce representative and written informed consent was obtained. All available pre-procedure labs were reviewed. Height: 177.8 cm. 70 in. Weight: 85.5 kg. 188.1 lb. Body surface area: 2.07 m^2. Body mass index: 27 kg/m^2. Procedure: 1. Initial setup. The patient was brought to the laboratory. Surface ECG leads, blood pressure measurements, and pulse oximetric signals were monitored. A baseline seven lead ECG was recorded. A time out was observed per protocol. 2. Skin preparation. The planned puncture sites were prepped and draped in the usual sterile manner. 3. Local anesthesia. 1% lidocaine was administered. 4. Supplemental oxygen. Oxygen, 2 L/min was administered throughout the procedure. 5. Local anesthesia. 1% lidocaine (2 ml) was administered. 6. Right radial artery access. A 6F Glidesheath Slender sheath was advanced into the vessel. 7. Selective right coronary angiography. A 5F TIG 4.0 catheter was advanced into the right coronary vessel ostium under fluoroscopic guidance. Contrast was injected. Images were obtained in multiple projections. 8. Supplemental oxygen. Oxygen, 4 L/min was administered throughout the procedure. 9. Selective left coronary angiography. A 5F TIG 4.0 catheter was advanced into the left coronary vessel ostium under fluoroscopic guidance. Contrast was injected. Images were obtained in multiple projections. 10. Right radial artery hemostasis. Vessel closure was achieved with a Regular Vasc Band device. Hemostasis was successfully obtained. Study completion: Minimal estimated blood loss. All catheters inserted during the procedure were removed. There were no apparent complications. Administered medications: Aspirin, 81mg, PO. (Radial) Nitroglycerin, 300mcg, intra-arterially. (Radial) Verapamil, 3mg, intra-arterially. (Radial) Heparin, 3,000units, intra-arterially. NaCl 0.9% , infusion , at a rate of 75 ml/hr. Contrast: Omnipaque 350 25 ml (total dose). Omnipaque 350 175 ml (wasted). Radiation: Fluoroscopy time: 2.2 min. The Air Kerma was 836.2milliGy. The DAP was 5166.1 microgray/m2. Discharge: The patient tolerated the procedure well and was discharged from the lab in stable condition. Findings Coronary arteries: The coronary circulation is right dominant. Left main: Distal vessel lesion: There is an 80% stenosis. There is heavy calcification noted. LAD: Proximal vessel lesion: There is an 80% stenosis. Mid-vessel lesion: There is a 75% stenosis. There is heavy calicification throughout the left anterior descending coronary. Left circumflex: Distal vessel lesion: There is a 95% stenosis. Distal vessel lesion: There is a 100% stenosis. Proximal vessel lesion: There is an 80% stenosis. Heavy calcification is seen throughout the circumflex system. 2nd obtuse marginal: Proximal vessel lesion: There is an 85% stenosis. Right coronary: Proximal vessel lesion: There is a 75% stenosis. Mid-vessel lesion: There is a 100% stenosis. Heavy calcification is seen throughout the right coronary system. Hemodynamics: + + + |Stage description |Condition 1 -| + + + |Arterial pressure s/d (m)|93/63 (77) | + + + Prepared and electronically signed by Rolando Galaviz MD 12/03/2018 11:41"
[2018-12-03 12:51] VITALS: BP 111/74
--- NOTE | 2018-12-03 13:27 | DS ---
CC: Dr. Kim * TRANSFER SUMMARY: DATE OF ADMISSION: 11/30/18 DATE OF TRANSFER: 12/03/18 PRIMARY CARE PHYSICIAN: Dr. Kim. DISPOSITION ON TRANSFER: [facility]. CONDITION ON DISCHARGE: Stable. REASON FOR TRANSFER TO HIGHER LEVEL OF CARE: Triple-vessel disease, severe aortic stenosis, need for cardiothoracic surgery. PRIMARY DIAGNOSES: 1. Triple-vessel disease, verbally relayed, completely occluded RCA. 2. Severe aortic stenosis secondary to disease. 3. Insulin-dependent type 2 diabetes mellitus. 4. Hypertension. 5. Hyperlipidemia. HOME MEDICATIONS: Include: 1. Metformin 1000 mg twice daily. 2. Ramipril 5 mg daily. 3. Simvastatin 40 mg daily. 4. Aspirin 81 mg daily. 5. Finasteride 5 mg daily. 6. Lantus 15 units daily. 7. Bydureon weekly. 8. Fluticasone as needed. 9. Invokana 300 mg daily. MEDICATIONS AT TRANSFER: 1. Acetaminophen p.r.n. 2. Aspirin 81 mg daily. 3. Atorvastatin 20 mg in the evening. 4. Finasteride 5 mg in the morning. 5. Lantus 8 units at bedtime. 6. Lispro sliding scale with meals and at bedtime. 7. Metoprolol succinate 50 mg daily. 8. Ramipril 5 mg daily. PERTINENT PROCEDURES PERFORMED DURING HOSPITAL STAY: Left heart cath on , official report pending, relayed via interventionalist, triple-vessel disease including totally occluded RCA. PERTINENT RADIOLOGY AND PERTINENT IMAGING: Chest x-ray on day of presentation, cardiomegaly with interstitial edema consistent with vascular congestion. PERTINENT LABORATORY DATA: Troponin I on presentation 0.26, remained elevated through the ensuing 24 hours. MICROBIOLOGY: No pertinent microbiology. HISTORY OF PRESENT ILLNESS AND HOSPITAL COURSE: This is a 78-year-old man with past medical history as outlined in the history of present illness on day of admission including type 2 diabetes, hypertension, hyperlipidemia who presented to the emergency room with worsening dyspnea on exertion. While in the emergency room, noted to have elevated troponin, admitted to the hospitalist service, suspected to be in congestive heart failure, seen in consultation with cardiology, recommended left heart cath to rule out severe CAD, evaluate for TAVR. Indicated procedure was performed on 12/03/18 notable for triple-vessel disease indicated above. The patient remained chest pain free. Arrangements were made for transfer to [facility], accepting physician is Dr. Wilkins. FOLLOWUP UPON TRANSFER: 1. By wish by cardiothoracic surgery as indicated given findings noted above. 2. Continue medical management for diabetes, CAD as well as hypertension. Please do not hesitate to call with any additional concerns. [id number]/[facility] #: [id number] [place]
== END 2018-12-03 13:00 | disposition short-term general hospital (02) | DRG 287 ==
LOC: ED 15:50 → MEDTELE 18:45
PROVIDERS: ADMIT Internal Medicine; ATTEND Internal Medicine
PROC: B211YZZ Fluoroscopy of Multiple Coronary Arteries using Other Contrast (ICD-10-PCS; 2018-12-03)
PROC: 4A023N7 Measurement of Cardiac Sampling and Pressure, Left Heart, Percutaneous Approach (ICD-10-PCS; principal; 2018-12-03 09:00)
DX: I25.10 Atherosclerotic heart disease of native coronary artery without angina pectoris (principal); I11.0 Hypertensive heart disease with heart failure; I50.9 Heart failure, unspecified; I08.3 Combined rheumatic disorders of mitral, aortic and tricuspid valves; E11.9 Type 2 diabetes mellitus without complications; R74.8 Abnormal levels of other serum enzymes; E78.5 Hyperlipidemia, unspecified; Z79.84 Long term (current) use of oral hypoglycemic drugs; Z79.82 Long term (current) use of aspirin; Z79.4 Long term (current) use of insulin; Z79.899 Other long term (current) drug therapy; Z82.49 Family history of ischemic heart disease and other diseases of the circulatory system; Z87.442 Personal history of urinary calculi
CPT/HCPCS: 36415; 71045; 76937; 80048; 80053; 80061; 81003; 82550; 82553; 83605; 83735; 83880; 84443; 84484; 85025; 85379; 85610; 85730; 86141; 93005; 93454; 99284; A9270-GY; J1644; J1650; J1940; J2250; J3010; J3490

== ENCOUNTER 2019-03-13 16:15 | Emergency (ER) | payer MEDICARE ==
[2019-03-13 16:30] VITALS: BP 114/66
[2019-03-13] MEDS ORDERED: Mupirocin 2% OINT* TUBE TOPICAL ONE (17:24)
--- NOTE | 2019-03-13 17:30 | UC ---
Skin Complaint HPI - HPI Summary HPI Summary: 78-year-old male comes in with a chief complaint of foreign body in his heels. Patient has cracks in his heels and he noticed some black foreign body in both of his heels. He cleaned 1 of the cracks out and realized it is fibers from his socks. Patient does have type 2 diabetes. No drainage from the area no fevers no chills feels well otherwise. - History of Current Complaint Chief Complaint: UCLowerExtremity Time Seen by Provider: 03/13/19 16:52 Stated Complaint: SKIN ISSUE ON FOOT, TYPE 2 DIABETIC Pain Intensity: 1 - Allergy/Home Medications Allergies/Adverse Reactions: Allergies Allergy/AdvReac Type Severity Reaction Status Date / Time No Known Allergies Allergy Verified 03/13/19 16:30 Home Medications: Home Medications Amiodarone TAB* [Cordarone Tab*] 200 mg PO DAILY 03/13/19 [History Confirmed ] Metoprolol Tartrate 25 mg PO DAILY 03/13/19 [History Confirmed 03/13/19] Spironolactone TAB* [Aldactone TAB 25 MG*] 25 mg PO DAILY 03/13/19 [History Confirmed 03/13/19] Warfarin TAB(*) [Coumadin TAB(*)] 2 mg PO DAILY 03/13/19 [History Confirmed ] PMH/Surg Hx/FS Hx/Imm Hx Previously Healthy: Yes Endocrine History: Diabetes Cardiovascular History: Hypertension, Pacemaker/ICD Other History Of: Anticoagulant Therapy - ASA Negative For: HIV, Hepatitis B, Hepatitis C - Surgical History Surgical History: Yes Surgery Procedure, Year, and Place: [place]OMY, [place] [facility] 1999 & 2007 [place] [facility] [place] [facility] [place]VIS SYMPHYSIS ORIF AFTER WATER SKIING ACCIDENT, [place]. 02/13/2013 CYSTOSCOPY, LEFT URETERAL STENT PLACEMENT, [place] [facility] [place]ADDER STONE [id number]. 12/04/18 bypass surgery - Family History Known Family History: Negative: Cardiac Disease, Hypertension, Renal Disease, Respiratory Disease Family History: Mother at 94 y/o. Father at age 84 with CHF. - Social History Alcohol Use: None Alcohol Amount: 3-4 per month, 1 whiskey per month Substance Use Type: None Smoking Status (MU): Never Smoked Tobacco - Immunization History Most Recent Influenza Vaccination: JAN 2018 Most Recent Tetanus Shot: unknown, thinks >5 years Most Recent Pneumonia Vaccination: 2014 Review of Systems All Other Systems Reviewed And Are Negative: Yes Constitutional: Positive: Negative Skin: Positive: Other - SEE HPI Eyes: Positive: Negative ENT: Positive: Negative Respiratory: Positive: Negative Cardiovascular: Positive: Negative Gastrointestinal: Positive: Negative Motor: Positive: Negative Neurovascular: Positive: Negative Musculoskeletal: Positive: Negative Neurological: Positive: Negative Psychological: Positive: Negative Is Patient Immunocompromised?: No Physical Exam Triage Information Reviewed: Yes Appearance: Well-Appearing, No Pain Distress, Well-Nourished Vital Signs: Initial Vital Signs Temp 97.3 F 03/13/19 16:24 Pulse 70 03/13/19 16:24 Resp 18 03/13/19 16:24 BP 114/66 03/13/19 16:24 Pulse Ox 97 03/13/19 16:24 Vital Signs Reviewed: Yes Eye Exam: Normal Eyes: Positive: Conjunctiva Clear Neck: Positive: Supple Respiratory: Positive: No respiratory distress Musculoskeletal: Positive: Strength Intact, ROM Intact Neurological: Positive: Alert Psychological: Positive: Age Appropriate Behavior Skin: Positive: Other - There are skin cracks on both heels. On the left heel to cracks each 1.5 cm long that have black fibers from his socks and there. On the right there is a 1.5 cm skin crack but also has some sock fiber present. I soaked both with normal saline and then using splinter forceps I removed the sock fibers. Nursing placed mupirocin antibiotic ointment and nonstick dressings. Course/Dx - Course Course Of Treatment: No obvious infection at this time and the feet. Plan is to use mupirocin topically and nonstick dressings and follow-up with his primary care doctor and/ or podiatry. Reevaluate sooner if worse or any questions or concerns. - Diagnoses Provider Diagnosis: Foreign body in foot Discharge ED - Sign-Out/Discharge Documenting (check all that apply): Patient Departure All imaging exams completed and their final reports reviewed: No Studies - Discharge Plan Condition: Stable Disposition: HOME Prescriptions: Mupirocin 1 applic TOPICAL BID #22 gm Patient Education Materials: Soft Tissue Foreign Body (ED) Referrals: Rich Kim MD [Primary Care Provider] - Amy Pereira DPM [Doctor of Podiatric Medicine] - Additional Instructions: FOLLOW UP WITH YOUR DOCTOR AND/OR PODIATRY. GET RECHECKED SOONER IF YOUR CONDITION WORSENS; SIGNS OF INFECTION OR ANY QUESTIONS OR CONCERNS. - Billing Disposition and Condition Condition: STABLE Disposition: Home
== END 2019-03-13 18:01 | disposition home or self-care (01) ==
LOC: UCEAST 16:15
DX: S90.852A Superficial foreign body, left foot, initial encounter (principal); S90.851A Superficial foreign body, right foot, initial encounter; W45.8XXA Other foreign body or object entering through skin, initial encounter; Y92.9 Unspecified place or not applicable; E11.9 Type 2 diabetes mellitus without complications; I10 Essential (primary) hypertension; Z95.810 Presence of automatic (implantable) cardiac defibrillator; Z95.1 Presence of aortocoronary bypass graft; Z79.01 Long term (current) use of anticoagulants
CPT/HCPCS: 28190; 99212; G0463